=== PATIENT | female | born 1945 | race African-American/Black ===

== ENCOUNTER 2018-04-20 21:50 | Emergency (ER) | payer MEDICARE, MEDICAID ==
[~2018-04-20] VITALS: Ht 162.6 cm; Wt 67.0 kg
[~2018-04-20 21:50] MED LIST: AMLO5TAB4 PO; ASPI-1158 PO; BENA20TA10 PO; BUPR150T2 PO; CITA20TA19 PO; CLON0.1T PO; D-ME118S13 PO; GABA-529 PO; IBUP-1008 PO; MECL-109 PO; METF1000 PO; OMEP20TA2 PO; PIOG30TA10 PO; QUET400T4; TRIA10.82 NS; ZOLP5TAB2 PO
[2018-04-20 23:53] LABS: HEMATOCRIT 33.5 % (36.0-48.0); HEMOGLOBIN 11.4 g/dL (12.0-16.0); MEAN CORPUSCULAR HEMOGLOBIN 25.6 pg (28.0-32.0); MEAN CORPUSCULAR VOLUME 75.4 fL (81.0-99.0); PLATELET 156 x1000/uL (130-400); RED BLOOD CELL COUNT 4.45 mill/uL (4.2-5.4); RED CELL DISTRIBUTION WIDTH 16.6 % (11.6-14.6)
[2018-04-20 23:59] LABS: CHLORIDE 108 mEq/L (98-107)
[2018-04-21 00:08] LABS: BETA HYDROXYBUTYRATE 0.1 mMol/L (0.0-0.3)
[2018-04-21 01:06] VITALS: BP 149/36
== END 2018-04-21 01:14 | disposition home or self-care (01) ==
LOC: ER 21:50
DX: E11.65 Type 2 diabetes mellitus with hyperglycemia (principal); I10 Essential (primary) hypertension; J45.909 Unspecified asthma, uncomplicated; Z79.4 Long term (current) use of insulin; Z86.73 Personal history of transient ischemic attack (TIA), and cerebral infarction without residual deficits; Z88.5 Allergy status to narcotic agent
CPT/HCPCS: 36415; 82010; 82962; 83036; 85027; 99283

== ENCOUNTER 2018-11-28 15:33 | Emergency (ER) | payer MEDICARE, MEDICAID ==
[~2018-11-28] VITALS: Ht 160 cm; Wt 79.0 kg
[2018-11-28] MEDS ORDERED: SODIUM CHLORIDE 0.9% 1,000 ML IV ONE ×2 (16:26→19:05)
[2018-11-28 17:23] LABS: BASOPHILS % 0.6 % (0.0-2.0); EOSINOPHILS % 1.4 % (0.0-5.0); HEMATOCRIT. 32.4 % (36.0-48.0); HEMOGLOBIN. 11.1 g/dL (12.0-16.0); LYMPHOCYTES % 32.6 % (20.0-50.0); MEAN CORPUSCULAR HEMOGLOBIN 24.2 pg (28.0-32.0); MEAN CORPUSCULAR VOLUME 70.6 fL (81.0-99.0); MEAN PLATELET VOLUME 9.9 fl (7.4-10.4); MONOCYTES % 10.3 % (2.0-8.0); NEUTROPHILS % 55.1 % (40.0-76.0); PLATELET 160 x1000/uL (130-400); RED BLOOD CELL COUNT 4.59 mill/uL (4.2-5.4); RED CELL DISTRIBUTION WIDTH 18.1 % (11.6-14.6)
[2018-11-28 17:28] LABS: CHLORIDE 105 mEq/L (98-107)
[2018-11-28 17:31] LABS: BG BASE EXCESS -5.6 mmol/L (-2.0-2.0); BG CARBOXYHEMOGLOBIN 0.4 % (0.5-1.5); BG DEOXYHEMOGLOBIN 4.6 % (0.0-5.0); BG FRACTION INSPIRED OXYGEN 21; BG HCO3 ACT 18.8 mmol/L (22.0-26.0); BG METHEMOGLOBIN 0.3 % (0.0-1.5); BG OXYGEN SATURATION 95.4 % (92.0-98.5); BG OXYHEMOGLOBIN 94.7 % (94.0-97.0); BG PH 7.374 (7.350-7.450); BG PO2 86.5 mmHg (75.0-100.0); BG SAMPLE SITE RIGHT RADIAL; BG TOTAL HEMOGLOBIN 10.6 g/dL (12.0-18.0); BG VENT MODE ROOM AIR
[2018-11-28 17:36] LABS: BETA HYDROXYBUTYRATE 0.1 mMol/L (0.0-0.3)
[2018-11-28] MEDS ORDERED: INSULIN REGULAR (HUMULIN R) UD 100 UNITS/ML SYR SUBCUT ONE (17:45)
[2018-11-28] MEDS: INSULIN REGULAR (HUMULIN R) 300UNITS/3ML SUBCUT NR ×2 (18:27→20:43)
[2018-11-28 19:22] LABS: CLARITY URINE CLOUDY (CLEAR); COLOR URINE YELLOW (YELLOW); KETONES URINE NEGATIVE (NEGATIVE); LEUKOCYTE ESTERASE URINE 2+ (NEGATIVE); NITRITE URINE NEGATIVE (NEGATIVE); OCCULT BLOOD URINE NEGATIVE (NEGATIVE); PH URINE 5.5 (4.5-8.0); PROTEIN URINE NEGATIVE (NEGATIVE); SPECIFIC GRAVITY URINE 1.016 (1.005-1.030)
[2018-11-28] MEDS ORDERED: CEFTRIAXONE 1 G PREMIX 50 ML IV ONE (19:45)
[2018-11-28 21:25] VITALS: BP 158/78
== END 2018-11-28 21:27 | disposition home or self-care (01) ==
LOC: ER 15:33
DX: E11.65 Type 2 diabetes mellitus with hyperglycemia (principal); N39.0 Urinary tract infection, site not specified; D50.9 Iron deficiency anemia, unspecified; Z79.84 Long term (current) use of oral hypoglycemic drugs
CPT/HCPCS: 36415; 36600; 71045; 80053; 81003; 82010; 82375; 82805; 82962; 84484; 85025; 87077; 87086; 87186; 93005; 96361; 96365; 99284; J0696; J1815; J7030

== ENCOUNTER 2018-12-17 14:38 | Emergency (ER) | payer MEDICARE, MEDICAID ==
[~2018-12-17] VITALS: Ht 165.1 cm; Wt 68.0 kg
[2018-12-17] MEDS ORDERED: SODIUM CHLORIDE 0.9% 1,000 ML IV ONE (16:49)
[2018-12-17] MEDS ORDERED: INSULIN REGULAR (HUMULIN R) 300UNITS/3ML SUBCUT ONE (17:00)
[2018-12-17 17:02] LABS: CHLORIDE 105 mEq/L (98-107)
[2018-12-17 17:03] LABS: BASOPHILS % 0.6 % (0.0-2.0); EOSINOPHILS % 0.3 % (0.0-5.0); HEMOGLOBIN. 11.4 g/dL (12.0-16.0); LYMPHOCYTES % 30.9 % (20.0-50.0); MEAN CORPUSCULAR HEMOGLOBIN 23.6 pg (28.0-32.0); MEAN CORPUSCULAR VOLUME 70.5 fL (81.0-99.0); MEAN PLATELET VOLUME 10.4 fl (7.4-10.4); NEUTROPHILS % 59.2 % (40.0-76.0); PLATELET 152 x1000/uL (130-400); RED BLOOD CELL COUNT 4.82 mill/uL (4.2-5.4); RED CELL DISTRIBUTION WIDTH 17.5 % (11.6-14.6)
[2018-12-17 17:17] LABS: CLARITY URINE CLEAR (CLEAR); COLOR URINE YELLOW (YELLOW); KETONES URINE NEGATIVE (NEGATIVE); LEUKOCYTE ESTERASE URINE 1+ (NEGATIVE); NITRITE URINE NEGATIVE (NEGATIVE); OCCULT BLOOD URINE NEGATIVE (NEGATIVE); PROTEIN URINE NEGATIVE (NEGATIVE); SPECIFIC GRAVITY URINE 1.025 (1.005-1.030)
[2018-12-17] MEDS ORDERED: CEFTRIAXONE 1 G PREMIX 50 ML IV ONE (18:30)
[2018-12-17 18:51] VITALS: BP 128/71
== END 2018-12-17 18:54 | disposition home or self-care (01) ==
LOC: ER 14:38
DX: E11.65 Type 2 diabetes mellitus with hyperglycemia (principal); N39.0 Urinary tract infection, site not specified; I10 Essential (primary) hypertension; J45.909 Unspecified asthma, uncomplicated; Z86.73 Personal history of transient ischemic attack (TIA), and cerebral infarction without residual deficits; Z88.5 Allergy status to narcotic agent; Z79.82 Long term (current) use of aspirin; Z79.4 Long term (current) use of insulin
CPT/HCPCS: 36415; 70450; 71045; 80053; 81003; 82962; 83880; 84484; 85025; 87086; 93005; 96361; 96365; 96372; 99284; J0696; J1815; J7030

== ENCOUNTER 2019-01-28 16:12 | Emergency (ER) | payer MEDICARE, MEDICAID ==
[~2019-01-28] VITALS: Ht 160 cm; Wt 70.0 kg
[2019-01-28] MEDS ORDERED: SODIUM CHLORIDE 0.9% 1,000 ML IV ONE ×2 (16:37→18:00)
[2019-01-28 17:29] LABS: BASOPHILS % 0.4 % (0.0-2.0); EOSINOPHILS % 0.4 % (0.0-5.0); HEMATOCRIT. 36.2 % (36.0-48.0); HEMOGLOBIN. 11.9 g/dL (12.0-16.0); LYMPHOCYTES % 17.1 % (20.0-50.0); MEAN CORPUSCULAR HEMOGLOBIN 23.2 pg (28.0-32.0); MEAN CORPUSCULAR VOLUME 70.4 fL (81.0-99.0); MEAN PLATELET VOLUME 9.8 fl (7.4-10.4); MONOCYTES % 8.6 % (2.0-8.0); NEUTROPHILS % 73.5 % (40.0-76.0); PLATELET 139 x1000/uL (130-400); RED BLOOD CELL COUNT 5.14 mill/uL (4.2-5.4); RED CELL DISTRIBUTION WIDTH 19.2 % (11.6-14.6)
[2019-01-28 17:35] LABS: CHLORIDE 105 mEq/L (98-107)
[2019-01-28] MEDS ORDERED: POTASSIUM CHLORIDE 20MEQ TABLET SR PO ONE (18:15)
[2019-01-28] MEDS ORDERED: DOCUSATE SODIUM 100MG CAPSULE PO PRN (19:15)
[2019-01-28] MEDS ORDERED: GUAIFENESIN 200MG/10ML SUGAR FREE UDC PO PRN (19:15)
[2019-01-28] MEDS ORDERED: MAGNESIUM/ALUMINUM HYDROXIDE/SIMETHICONE 30ML UDC PO PRN (19:15)
[2019-01-28] MEDS ORDERED: NITROGLYCERIN 0.4MG TABLET SL SL PRN (19:15)
[2019-01-28] MEDS ORDERED: ONDANSETRON HCL 4MG/2ML INJ IV PRN (19:15)
[2019-01-28] MEDS ORDERED: CLONIDINE 0.1MG TABLET PO PRN (19:15)
[2019-01-28] MEDS ORDERED: ENOXAPARIN 40MG/0.4ML SYR SUBCUT SCH (19:15)
[2019-01-28] MEDS ORDERED: DEXTROSE 50% WATER 50ML SYRINGE IV PRN (19:15)
[2019-01-28] MEDS ORDERED: IPRATROPIUM/ALBUTEROL 0.5-3(2.5)MG/3ML NEB HHN PRN (19:15)
[2019-01-28] MEDS ORDERED: ACETAMINOPHEN 325MG TABLET PO PRN (19:15)
[2019-01-28] MEDS ORDERED: TRAMADOL 50MG TABLET PO PRN (19:45)
[2019-01-28 20:30] VITALS: BP 154/79
[2019-01-28] MEDS ORDERED: LISINOPRIL 20MG TABLET PO SCH (21:00)
[2019-01-28] MEDS ORDERED: INSULIN LISPRO 100 UNITS/ML SUBCUT SCH (21:00)
[2019-01-28] MEDS ORDERED: ZOLPIDEM TARTRATE 5MG TABLET PO PRN (21:00)
[2019-01-28] MEDS ORDERED: FAMOTIDINE 20MG TABLET PO SCH (21:00)
[2019-01-28] MEDS ORDERED: BLOOD SUGAR DIAGNOSTIC STRIP TEST SCH (21:00)
[2019-01-28] MEDS ORDERED: HALOPERIDOL LACTATE 5MG/ML VIAL IM PRN (21:30)
[2019-01-28 21:53] LABS: FOLIC ACID (FOLATE) SERUM 19.1 ng/mL (>5.38)
[2019-01-28] MEDS ORDERED: INSULIN GLARGINE UD 100 UNITS/ML SYR SUBCUT SCH (22:00)
[2019-01-29] MEDS ORDERED: ASPIRIN 325MG EC TABLET PO SCH (09:00)
== END 2019-01-28 20:30 | disposition left against medical advice (07) ==
LOC: ER 16:12 → EDBEDREQTM 18:24 → SUPCPDRO 19:06 → ENRESERV 19:41 → CANRESERV 19:41 → ER 20:30 → CANBEDREQ 21:09
DX: R55 Syncope and collapse (principal); E11.65 Type 2 diabetes mellitus with hyperglycemia; I10 Essential (primary) hypertension; F99 Mental disorder, not otherwise specified; J45.909 Unspecified asthma, uncomplicated; E87.6 Hypokalemia; D64.9 Anemia, unspecified; E83.51 Hypocalcemia; E44.1 Mild protein-calorie malnutrition; Z68.27 Body mass index [BMI] 27.0-27.9, adult; Z86.73 Personal history of transient ischemic attack (TIA), and cerebral infarction without residual deficits; Z88.5 Allergy status to narcotic agent
CPT/HCPCS: 36415; 71045; 80053; 82607; 82746; 82962; 84484; 85025; 93005; 93970; 96360; 99284; J7030

== ENCOUNTER 2019-02-19 17:16 | Emergency (ER) | payer MEDICARE, MEDICAID ==
[~2019-02-19] VITALS: Ht 165.1 cm; Wt 75.0 kg
[2019-02-19] MEDS ORDERED: SODIUM CHLORIDE 0.9% 1,000 ML IV ONE (18:15)
[2019-02-19 18:31] LABS: CHLORIDE 103 mEq/L (98-107)
[2019-02-19 18:35] LABS: BASOPHILS % 0.4 % (0.0-2.0); EOSINOPHILS % 0.5 % (0.0-5.0); HEMATOCRIT. 33.3 % (36.0-48.0); MEAN CORPUSCULAR HEMOGLOBIN 22.9 pg (28.0-32.0); MEAN CORPUSCULAR VOLUME 69.1 fL (81.0-99.0); MEAN PLATELET VOLUME 9.9 fl (7.4-10.4); MONOCYTES % 7.1 % (2.0-8.0); PLATELET 139 x1000/uL (130-400); RED BLOOD CELL COUNT 4.82 mill/uL (4.2-5.4); RED CELL DISTRIBUTION WIDTH 19.2 % (11.6-14.6)
[2019-02-19 19:10] LABS: PLATELET ESTIMATE NORMAL
[2019-02-19] MEDS ORDERED: MAGNESIUM 1 G PREMIX 100 ML IV ONE (21:15)
[2019-02-19 23:06] LABS: CLARITY URINE CLOUDY (CLEAR); COLOR URINE YELLOW (YELLOW); KETONES URINE NEGATIVE (NEGATIVE); LEUKOCYTE ESTERASE URINE 2+ (NEGATIVE); NITRITE URINE NEGATIVE (NEGATIVE); OCCULT BLOOD URINE NEGATIVE (NEGATIVE); PROTEIN URINE NEGATIVE (NEGATIVE); SPECIFIC GRAVITY URINE 1.018 (1.005-1.030)
[2019-02-20 01:00] VITALS: BP 151/73
== END 2019-02-20 01:10 | disposition home or self-care (01) ==
LOC: ER 17:48
DX: N39.0 Urinary tract infection, site not specified (principal); E11.65 Type 2 diabetes mellitus with hyperglycemia; E83.42 Hypomagnesemia; I10 Essential (primary) hypertension; Z79.4 Long term (current) use of insulin; Z79.899 Other long term (current) drug therapy
CPT/HCPCS: 36415; 71045; 80053; 81003; 82962; 83735; 84484; 85025; 93005; 96361; 96365; 96366; 99284; J3475; J7030

== ENCOUNTER 2019-03-19 14:18 | Inpatient (IN) | payer MEDICARE, MEDICAID ==
[~2019-03-19] VITALS: Ht 165.1 cm; Wt 69.9 kg
[2019-03-19 14:56] LABS: BASOPHILS % 0.5 % (0.0-2.0); EOSINOPHILS % 1.3 % (0.0-5.0); HEMATOCRIT. 32.6 % (36.0-48.0); HEMOGLOBIN. 11.1 g/dL (12.0-16.0); LYMPHOCYTES % 35.5 % (20.0-50.0); MEAN CORPUSCULAR HEMOGLOBIN 23.3 pg (28.0-32.0); MEAN CORPUSCULAR VOLUME 68.7 fL (81.0-99.0); MEAN PLATELET VOLUME 9.5 fl (7.4-10.4); MONOCYTES % 9.6 % (2.0-8.0); NEUTROPHILS % 53.1 % (40.0-76.0); PLATELET 137 x1000/uL (130-400); RED BLOOD CELL COUNT 4.75 mill/uL (4.2-5.4); RED CELL DISTRIBUTION WIDTH 19.3 % (11.6-14.6)
[2019-03-19 14:57] LABS: BG BASE EXCESS -4.5 mmol/L (-2.0-2.0); BG CARBOXYHEMOGLOBIN 0.5 % (0.5-1.5); BG DEOXYHEMOGLOBIN 4.3 % (0.0-5.0); BG FRACTION INSPIRED OXYGEN 21; BG HCO3 ACT 19.9 mmol/L (22.0-26.0); BG METHEMOGLOBIN 0.3 % (0.0-1.5); BG OXYGEN SATURATION 95.7 % (92.0-98.5); BG OXYHEMOGLOBIN 94.9 % (94.0-97.0); BG PCO2 34.2 mmHg (35.0-45.0); BG PH 7.383 (7.350-7.450); BG PO2 85.5 mmHg (75.0-100.0); BG SAMPLE SITE RIGHT BRACHIAL; BG TOTAL HEMOGLOBIN 11.2 g/dL (12.0-18.0); BG VENT MODE ROOM AIR
[2019-03-19 15:03] LABS: CHLORIDE 105 mEq/L (98-107)
[2019-03-19 15:04] LABS: INR 1.2; PROTHROMBIN TIME 12.2 sec (9.6-11.0)
[2019-03-19 15:12] LABS: BETA HYDROXYBUTYRATE 0.1 mMol/L (0.0-0.3)
[2019-03-19] MEDS ORDERED: MAGNESIUM 2 G PREMIX 50 ML IV ONE (15:15)
[2019-03-19] MEDS ORDERED: POTASSIUM CHLORIDE 20MEQ TABLET SR PO ONE (15:15)
[2019-03-19 15:28] LABS: CLARITY URINE TURBID (CLEAR); COLOR URINE YELLOW (YELLOW); KETONES URINE NEGATIVE (NEGATIVE); LEUKOCYTE ESTERASE URINE 1+ (NEGATIVE); NITRITE URINE NEGATIVE (NEGATIVE); OCCULT BLOOD URINE NEGATIVE (NEGATIVE); PROTEIN URINE NEGATIVE (NEGATIVE); SPECIFIC GRAVITY URINE 1.028 (1.005-1.030)
[2019-03-19 15:35] LABS: PLATELET ESTIMATE NORMAL
[2019-03-19] MEDS ORDERED: NA PHOS,M-B/NA PHOS,DI-BA ENEMA 118ML PR PRN (15:45)
[2019-03-19] MEDS ORDERED: DEXTROSE 50% WATER 50ML SYRINGE IV PRN (15:45)
[2019-03-19] MEDS ORDERED: DOCUSATE SODIUM 100MG CAPSULE PO PRN (15:45)
[2019-03-19] MEDS ORDERED: LORAZEPAM 0.5MG TABLET PO PRN (15:45)
[2019-03-19] MEDS ORDERED: ACETAMINOPHEN 650MG SUPP PR PRN (15:45)
[2019-03-19] MEDS ORDERED: GUAIFENESIN 200MG/10ML SUGAR FREE UDC PO PRN (15:45)
[2019-03-19] MEDS ORDERED: INSULIN REGULAR (HUMULIN R) 300UNITS/3ML SUBCUT ONE (15:45)
[2019-03-19] MEDS ORDERED: IPRATROPIUM/ALBUTEROL 0.5-3(2.5)MG/3ML NEB NEB PRN (15:45)
[2019-03-19] MEDS ORDERED: ACETAMINOPHEN 325MG TABLET PO PRN (15:45)
[2019-03-19] MEDS ORDERED: ONDANSETRON HCL 4MG/2ML INJ IV PRN (15:45)
[2019-03-19] MEDS ORDERED: MAGNESIUM/ALUMINUM HYDROXIDE/SIMETHICONE 30ML UDC PO PRN (15:45)
[2019-03-19] MEDS ORDERED: CLONIDINE 0.1MG TABLET PO PRN (15:45)
[2019-03-19] MEDS ORDERED: DIPHENHYDRAMINE 50MG/ML VIAL IV PRN (15:45)
[2019-03-19] MEDS ORDERED: CEFTRIAXONE 1 G PREMIX 50 ML IV ONE (16:00)
[2019-03-19] MEDS ORDERED: CEFTRIAXONE 1 G PREMIX 50 ML IV SCH (18:15)
[2019-03-19] MEDS ORDERED: INSULIN GLARGINE UD 100 UNITS/ML SYR SUBCUT ONE (18:15)
[2019-03-19 20:00] VITALS: BP 167/77
[2019-03-19] MEDS: BLOOD SUGAR DIAGNOSTIC STRIP TEST SCH (21:25)
[2019-03-19] MEDS ORDERED: MIRTAZAPINE 15MG TABLET PO PRN (22:00)
[2019-03-19] MEDS ORDERED: MECLIZINE 25MG TABLET PO PRN (22:00)
[2019-03-19] MEDS: SODIUM CHLORIDE 0.9% 1,000 ML IV SCH (22:36)
[2019-03-19] MEDS: INSULIN LISPRO 100 UNITS/ML SUBCUT SCH (22:38)
[2019-03-19] MEDS ORDERED: INSULIN GLARGINE UD 100 UNITS/ML SYR SUBCUT NR (23:00)
[2019-03-20] VITALS: BP 149/57
[2019-03-20 00:02] LABS: CREATINE KINASE 106 IU/L (26-192)
[2019-03-20 00:03] LABS: CREATINE KINASE MB FRACTION 1.5 ng/mL (0.5-3.6)
[2019-03-20 02:00] VITALS: BP 167/77
[2019-03-20] MEDS ORDERED: DONE5TAB26 MT (02:59)
[2019-03-20] MEDS ORDERED: OXYB5TAB11 PO (02:59)
[2019-03-20] MEDS ORDERED: ATOR40TA70 MT (02:59)
[2019-03-20] MEDS ORDERED: NIFE20CA PO (02:59)
[2019-03-20] MEDS ORDERED: MIRT15TA MT (02:59)
[2019-03-20 04:00] VITALS: BP 146/59
[2019-03-20] MEDS: BLOOD SUGAR DIAGNOSTIC STRIP TEST SCH ×2 (06:23→11:20)
[2019-03-20] MEDS: INSULIN LISPRO 100 UNITS/ML SUBCUT SCH ×2 (06:29→11:31)
[2019-03-20 07:05] LABS: BASOPHILS % 0.5 % (0.0-2.0); EOSINOPHILS % 1.7 % (0.0-5.0); HEMATOCRIT. 30.1 % (36.0-48.0); MEAN CORPUSCULAR HEMOGLOBIN 22.9 pg (28.0-32.0); MEAN CORPUSCULAR VOLUME 68.5 fL (81.0-99.0); MEAN PLATELET VOLUME 9.9 fl (7.4-10.4); MONOCYTES % 7.8 % (2.0-8.0); PLATELET 105 x1000/uL (130-400); RED BLOOD CELL COUNT 4.39 mill/uL (4.2-5.4); RED CELL DISTRIBUTION WIDTH 19.9 % (11.6-14.6)
[2019-03-20 07:22] LABS: CHLORIDE 112 mEq/L (98-107)
[2019-03-20 07:41] LABS: LDL CHOLESTEROL 35 mg/dL (5-100)
[2019-03-20 07:42] LABS: CREATINE KINASE 87 IU/L (26-192); T4 FREE 1.14 ng/dL (0.76-1.46)
[2019-03-20 07:43] LABS: HDL CHOLESTEROL 40 mg/dL (40-59)
[2019-03-20 08:25] LABS: *AMPHETAMINES SCREEN URINE NEGATIVE (NEGATIVE); *BARBITURATES SCREEN URINE NEGATIVE (NEGATIVE); *BENZODIAZEPINES SCREEN URINE NEGATIVE (NEGATIVE); *COCAINE SCREEN URINE NEGATIVE (NEGATIVE)
[2019-03-20 08:26] LABS: CANNABINOID URINE SCREEN NEGATIVE (NEGATIVE); METHADONE URINE SCREEN NEGATIVE (NEGATIVE); PHENCYCLIDINE URINE SCREEN NEGATIVE (NEGATIVE)
[2019-03-20 08:28] LABS: OPIATES URINE SCREEN NEGATIVE (NEGATIVE)
[2019-03-20 10:14] VITALS: BP 125/16
[2019-03-20] MEDS: SODIUM CHLORIDE 0.9% 1,000 ML IV SCH (10:55)
[2019-03-20] MEDS ORDERED: CEFTRIAXONE 1 G PREMIX 50 ML IV SCH (14:00)
[2019-03-20 16:14] VITALS: BP 126/75
== END 2019-03-20 17:15 | disposition home or self-care (01) | DRG 74 ==
LOC: ER 14:18 → 8WST 15:34 → SUPCPDRO 15:38 → EDBEDREQ 15:38 → ENRESERV 16:28
PROVIDERS: ADMIT Internal Medicine; ATTEND Internal Medicine
DX: G90.8 Other disorders of autonomic nervous system (principal); G93.40 Encephalopathy, unspecified; N39.0 Urinary tract infection, site not specified; E87.1 Hypo-osmolality and hyponatremia; E11.65 Type 2 diabetes mellitus with hyperglycemia; Z86.73 Personal history of transient ischemic attack (TIA), and cerebral infarction without residual deficits; F32.9 Major depressive disorder, single episode, unspecified; F41.9 Anxiety disorder, unspecified; D64.9 Anemia, unspecified; E87.6 Hypokalemia; E83.42 Hypomagnesemia; E86.0 Dehydration; I10 Essential (primary) hypertension; J44.9 Chronic obstructive pulmonary disease, unspecified; Z88.6 Allergy status to analgesic agent; Z79.82 Long term (current) use of aspirin; Z79.84 Long term (current) use of oral hypoglycemic drugs; Z79.899 Other long term (current) drug therapy
CPT/HCPCS: 36415; 36600; 71045; 80061; 80305; 81003; 82010; 82375; 82550; 82553; 82805; 82962; 83735; 83880; 84439; 84443; 84484; 87077; 87186; 93005; 93306; 93880; 93970; 96372; 96374; 96375; 97162; 99291; J0696; J1815; J3475

== ENCOUNTER 2019-06-18 09:55 | Emergency (ER) | payer MEDICARE, MEDICAID ==
[~2019-06-18] VITALS: Ht 165.1 cm; Wt 91.0 kg
[~2019-06-18 09:55] MED LIST changes: -AMLO5TAB4 PO; -ASPI-1158 PO; +ATOR40TA70 MT; -BENA20TA10 PO; -BUPR150T2 PO; -CLON0.1T PO; -D-ME118S13 PO; +DONE5TAB26 MT; -GABA-529 PO; -IBUP-1008 PO; -MECL-109 PO; +MIRT15TA MT; +NIFE20CA PO; +OXYB5TAB17 PO; -PIOG30TA10 PO; -QUET400T4; -TRIA10.82 NS; -ZOLP5TAB2 PO
[2019-06-18 10:51] LABS: BASOPHILS % 0.8 % (0.0-2.0); EOSINOPHILS % 0.5 % (0.0-5.0); HEMATOCRIT. 33.9 % (36.0-48.0); HEMOGLOBIN. 11.1 g/dL (12.0-16.0); MEAN CORPUSCULAR HEMOGLOBIN 21.4 pg (28.0-32.0); MEAN CORPUSCULAR VOLUME 65.3 fL (81.0-99.0); MEAN PLATELET VOLUME 9.5 fl (7.4-10.4); NEUTROPHILS % 53.7 % (40.0-76.0); PLATELET 123 x1000/uL (130-400); RED BLOOD CELL COUNT 5.19 mill/uL (4.2-5.4); RED CELL DISTRIBUTION WIDTH 20.1 % (11.6-14.6)
[2019-06-18 10:58] LABS: CHLORIDE 104 mEq/L (98-107)
[2019-06-18] MEDS ORDERED: SODIUM CHLORIDE 0.9% 1,000 ML IV ONE (11:00)
[2019-06-18] MEDS ORDERED: ONDANSETRON HCL 4MG/2ML INJ IV ONE (11:00)
[2019-06-18 11:02] LABS: ETHANOL BLOOD < 10 mg/dL
[2019-06-18 11:24] LABS: PLATELET ESTIMATE SLIGHTLY DECREASED
[2019-06-18 12:09] LABS: CLARITY URINE CLOUDY (CLEAR); COLOR URINE YELLOW (YELLOW); KETONES URINE TRACE (NEGATIVE); LEUKOCYTE ESTERASE URINE NEGATIVE (NEGATIVE); NITRITE URINE NEGATIVE (NEGATIVE); OCCULT BLOOD URINE NEGATIVE (NEGATIVE); PH URINE 5.5 (4.5-8.0); PROTEIN URINE 1+ (NEGATIVE); SPECIFIC GRAVITY URINE 1.021 (1.005-1.030); UROBILINOGEN URINE 0.2 E.U./dL (0.2-1.0)
[2019-06-18 12:30] LABS: *AMPHETAMINES SCREEN URINE NEGATIVE (NEGATIVE)
[2019-06-18] MEDS ORDERED: CEFTRIAXONE 1 G PREMIX 50 ML IV NR (12:30)
[2019-06-18 12:31] LABS: *BARBITURATES SCREEN URINE NEGATIVE (NEGATIVE); *BENZODIAZEPINES SCREEN URINE NEGATIVE (NEGATIVE); *COCAINE SCREEN URINE NEGATIVE (NEGATIVE); METHADONE URINE SCREEN NEGATIVE (NEGATIVE); OPIATES URINE SCREEN NEGATIVE (NEGATIVE); PHENCYCLIDINE URINE SCREEN NEGATIVE (NEGATIVE)
[2019-06-18 12:32] LABS: CANNABINOID URINE SCREEN NEGATIVE (NEGATIVE)
[2019-06-18 13:55] VITALS: BP 150/82
== END 2019-06-18 14:54 | disposition home or self-care (01) ==
LOC: ER 10:00
DX: E11.65 Type 2 diabetes mellitus with hyperglycemia (principal); N39.0 Urinary tract infection, site not specified; R53.83 Other fatigue; I10 Essential (primary) hypertension; F03.90 Unspecified dementia, unspecified severity, without behavioral disturbance, psychotic disturbance, mood disturbance, and anxiety; J45.909 Unspecified asthma, uncomplicated; Z86.73 Personal history of transient ischemic attack (TIA), and cerebral infarction without residual deficits; Z79.899 Other long term (current) drug therapy; Z88.5 Allergy status to narcotic agent
CPT/HCPCS: 36415; 70450; 71045; 80053; 80305; 80307; 80320; 80329; 81003; 82140; 82962; 83880; 84443; 84484; 85025; 93005; 96361; 96374; 96375; 99284; J0696; J2405; J7030; G0480

== ENCOUNTER 2019-07-22 17:21 | Inpatient (IN) | payer MEDICARE, MEDICAID ==
[~2019-07-22] VITALS: Ht 165.1 cm; Wt 59.9 kg
[2019-07-22 18:27] LABS: BASOPHILS % 0.8 % (0.0-2.0); EOSINOPHILS % 0.9 % (0.0-5.0); HEMATOCRIT. 33.5 % (36.0-48.0); HEMOGLOBIN. 10.9 g/dL (12.0-16.0); LYMPHOCYTES % 49.7 % (20.0-50.0); MEAN CORPUSCULAR HEMOGLOBIN 21.5 pg (28.0-32.0); MEAN CORPUSCULAR VOLUME 66.3 fL (81.0-99.0); MEAN PLATELET VOLUME 10.7 fl (7.4-10.4); MONOCYTES % 8.3 % (2.0-8.0); NEUTROPHILS % 40.3 % (40.0-76.0); PLATELET 147 x1000/uL (130-400); RED BLOOD CELL COUNT 5.05 mill/uL (4.2-5.4); RED CELL DISTRIBUTION WIDTH 21.6 % (11.6-14.6)
[2019-07-22 18:28] LABS: CHLORIDE 98 mEq/L (98-107)
[2019-07-22 18:35] LABS: BETA HYDROXYBUTYRATE 0.2 mMol/L (0.0-0.3)
[2019-07-22 18:54] LABS: PLATELET ESTIMATE NORMAL
[2019-07-22 19:19] LABS: CLARITY URINE TURBID (CLEAR); COLOR URINE YELLOW (YELLOW); KETONES URINE NEGATIVE (NEGATIVE); LEUKOCYTE ESTERASE URINE 2+ (NEGATIVE); NITRITE URINE POSITIVE (NEGATIVE); OCCULT BLOOD URINE 2+ (NEGATIVE); PROTEIN URINE NEGATIVE (NEGATIVE); SPECIFIC GRAVITY URINE 1.033 (1.005-1.030); UROBILINOGEN URINE 0.2 E.U./dL (0.2-1.0)
[2019-07-22] MEDS ORDERED: INSULIN REGULAR (DRIP) 100 UNITS in SODIUM CHLORIDE 0.9% 99 ML IV ONE ×2 (19:30→20:15)
[2019-07-22 19:56] LABS: *AMPHETAMINES SCREEN URINE NEGATIVE (NEGATIVE); *BENZODIAZEPINES SCREEN URINE NEGATIVE (NEGATIVE); *COCAINE SCREEN URINE NEGATIVE (NEGATIVE); METHADONE URINE SCREEN NEGATIVE (NEGATIVE); PHENCYCLIDINE URINE SCREEN NEGATIVE (NEGATIVE)
[2019-07-22 19:57] LABS: CANNABINOID URINE SCREEN NEGATIVE (NEGATIVE)
[2019-07-22 20:55] LABS: *BARBITURATES SCREEN URINE NEGATIVE (NEGATIVE)
[2019-07-23] VITALS (33 sets, daily range): BP systolic 66–215; BP diastolic 36–153
[2019-07-23] MEDS ORDERED: LOSARTAN POTASSIUM 100 MG TABLET PO SCH (09:00)
[2019-07-23] MEDS ORDERED: DEXTROSE 50% WATER 50ML SYRINGE IV PRN (09:30)
[2019-07-23] MEDS ORDERED: INSULIN GLARGINE UD 100 UNITS/ML SYR SUBCUT SCH ×3 (10:00→22:00)
[2019-07-23] MEDS ORDERED: CEFTRIAXONE 1 G PREMIX 50 ML IV SCH (10:00)
[2019-07-23] MEDS ORDERED: IPRATROPIUM/ALBUTEROL 0.5-3(2.5)MG/3ML NEB HHN PRN (11:15)
[2019-07-23] MEDS: BLOOD SUGAR DIAGNOSTIC STRIP TEST SCH ×2 (12:00→17:36)
[2019-07-23] MEDS: INSULIN LISPRO 100 UNITS/ML SUBCUT SCH ×4 (12:28→17:36)
[2019-07-23] MEDS ORDERED: MEROPENEM 1,000 MG in SODIUM CHLORIDE 0.9% 100 ML IV SCH (12:30)
[2019-07-23 13:06] LABS: BASOPHILS % 0.7 % (0.0-2.0); EOSINOPHILS % 0.5 % (0.0-5.0); HEMATOCRIT. 32.9 % (36.0-48.0); HEMOGLOBIN. 10.9 g/dL (12.0-16.0); LYMPHOCYTES % 44.5 % (20.0-50.0); MEAN CORPUSCULAR HEMOGLOBIN 21.7 pg (28.0-32.0); MEAN CORPUSCULAR VOLUME 65.6 fL (81.0-99.0); MEAN PLATELET VOLUME 9.8 fl (7.4-10.4); MONOCYTES % 6.7 % (2.0-8.0); NEUTROPHILS % 47.6 % (40.0-76.0); PLATELET 139 x1000/uL (130-400); RED BLOOD CELL COUNT 5.02 mill/uL (4.2-5.4); RED CELL DISTRIBUTION WIDTH 21.1 % (11.6-14.6)
[2019-07-23 13:14] LABS: CHLORIDE 101 mEq/L (98-107)
[2019-07-23] MEDS ORDERED: MIRT15TA6 PO (14:40)
[2019-07-23] MEDS ORDERED: MIRT15TA6 MT (14:40)
[2019-07-23] MEDS ORDERED: NIFEDIPINE XL 60MG TAB PO SCH (15:00)
[2019-07-23] MEDS ORDERED: INSULIN GLARGINE UD 100 UNITS/ML SYR SUBCUT NR (16:00)
[2019-07-23] MEDS ORDERED: CLONIDINE 0.2MG TABLET PO SCH (17:16)
[2019-07-24 21:31] LABS: OPIATES URINE SCREEN NEGATIVE (NEGATIVE)
== END 2019-07-23 18:30 | disposition left against medical advice (07) | DRG 638 ==
LOC: ER 17:21 → EDBEDREQ 23:38 → EDBEDREQSVC 07-23 01:43 → EDBEDREQTM 07-23 01:43 → ENRESERV 07-23 05:38 → MICUSO 07-23 06:54
PROVIDERS: ADMIT Internal Medicine; ATTEND Internal Medicine
DX: E11.65 Type 2 diabetes mellitus with hyperglycemia (principal); E44.1 Mild protein-calorie malnutrition; E87.1 Hypo-osmolality and hyponatremia; N39.0 Urinary tract infection, site not specified; D64.9 Anemia, unspecified; F41.9 Anxiety disorder, unspecified; I10 Essential (primary) hypertension; J44.9 Chronic obstructive pulmonary disease, unspecified; Z53.29 Procedure and treatment not carried out because of patient's decision for other reasons; Z86.73 Personal history of transient ischemic attack (TIA), and cerebral infarction without residual deficits; Z87.440 Personal history of urinary (tract) infections; Z88.5 Allergy status to narcotic agent; Z79.899 Other long term (current) drug therapy
CPT/HCPCS: 36415; 71045; 80048; 80053; 80305; 81003; 82010; 82962; 83036; 83880; 84484; 85025; 87077; 87186; 93005; 96365; 99285; J0696; J1815; J2185; J7050

== ENCOUNTER 2020-09-09 14:58 | Inpatient (IN) | payer BC, MEDICARE, MEDICAID ==
[~2020-09-09] VITALS: Ht 165.1 cm; Wt 104.3 kg
[~2020-09-09 14:58] MED LIST changes: +MIRT-118 MT; -MIRT15TA MT; +MIRT15TA6 MT; +MIRT15TA6 PO
[2020-09-09] MEDS ORDERED: ONDANSETRON HCL 4MG/2ML INJ IV STA (15:17)
[2020-09-09 16:15] LABS: BG BASE EXCESS -8.7 mmol/L (-2.0-2.0); BG CARBOXYHEMOGLOBIN 0.5 % (0.5-1.5); BG DEOXYHEMOGLOBIN 8.4 % (0.0-5.0); BG FRACTION INSPIRED OXYGEN 44; BG HCO3 ACT 15.4 mmol/L (22.0-26.0); BG METHEMOGLOBIN 0.3 % (0.0-1.5); BG OXYGEN SATURATION 91.5 % (92.0-98.5); BG OXYHEMOGLOBIN 90.8 % (94.0-97.0); BG PCO2 28.3 mmHg (35.0-45.0); BG PH 7.353 (7.350-7.450); BG PO2 64.4 mmHg (75.0-100.0); BG SAMPLE SITE RIGHT RADIAL; BG TOTAL HEMOGLOBIN 13.2 g/dL (12.0-18.0); BG VENT MODE NASAL CANNULA
[2020-09-09 16:19] LABS: BASOPHILS % 0.4 % (0.0-2.0); HEMATOCRIT. 38.1 % (36.0-48.0); HEMOGLOBIN. 13.1 g/dL (12.0-16.0); LYMPHOCYTES % 16.3 % (20.0-50.0); MEAN CORPUSCULAR HEMOGLOBIN 28.9 pg (28.0-32.0); MEAN CORPUSCULAR VOLUME 83.8 fL (81.0-99.0); MEAN PLATELET VOLUME 10.5 fl (7.4-10.4); MONOCYTES % 11.8 % (2.0-8.0); NEUTROPHILS % 71.5 % (40.0-76.0); PLATELET 126 x1000/uL (130-400); RED BLOOD CELL COUNT 4.54 mill/uL (4.2-5.4); RED CELL DISTRIBUTION WIDTH 15.6 % (11.6-14.6)
[2020-09-09 16:27] LABS: CHLORIDE 101 mEq/L (98-107)
[2020-09-09 16:29] LABS: INR 1.1; PROTHROMBIN TIME 11.4 sec (9.6-11.0)
[2020-09-09] MEDS ORDERED: DEXAMETHASONE 4MG/ML 1ML VIAL IV ONE (17:00)
[2020-09-10] VITALS (7 sets, daily range): BP systolic 123–151; BP diastolic 63–77
[2020-09-10] MEDS ORDERED: DEXTROSE 50% WATER 50ML SYRINGE IV PRN
[2020-09-10] MEDS ORDERED: ACETAMINOPHEN 325MG TABLET PO PRN
[2020-09-10] MEDS: AZITHROMYCIN 500 MG in DEXT 5% WATER 250 ML IV SCH (02:13)
[2020-09-10] MEDS: CEFTRIAXONE 1,000 MG in DEXTROSE 5% WATER 50 ML IV SCH (02:13)
[2020-09-10] MEDS: ZOLPIDEM TARTRATE 5MG TABLET PO PRN ×2 (02:14→21:46)
[2020-09-10] MEDS ORDERED: METF-874 MT (03:30)
[2020-09-10] MEDS ORDERED: AMLO10TA80 PO (03:30)
[2020-09-10] MEDS ORDERED: INSULIN LISPRO 100 UNITS/ML SUBCUT SCH ×2 (06:00→08:10)
[2020-09-10] MEDS: BLOOD SUGAR DIAGNOSTIC STRIP TEST SCH ×4 (07:42→21:46)
[2020-09-10] MEDS: FAMOTIDINE 20MG TABLET PO SCH (08:03)
[2020-09-10] MEDS: AMLODIPINE 10MG TABLET PO SCH (08:03)
[2020-09-10] MEDS: DEXAMETHASONE 10 MG/ML VIAL IV SCH (08:03)
[2020-09-10 08:54] LABS: CLARITY URINE CLEAR (CLEAR); COLOR URINE YELLOW (YELLOW); KETONES URINE NEGATIVE (NEGATIVE); LEUKOCYTE ESTERASE URINE NEGATIVE (NEGATIVE); NITRITE URINE NEGATIVE (NEGATIVE); OCCULT BLOOD URINE NEGATIVE (NEGATIVE); PROTEIN URINE NEGATIVE (NEGATIVE); SPECIFIC GRAVITY URINE 1.028 (1.005-1.030)
[2020-09-10] MEDS ORDERED: ENOXAPARIN 30MG/0.3ML SYR SUBCUT SCH (09:00)
[2020-09-10] MEDS ORDERED: ENOXAPARIN 40MG/0.4ML SYR SUBCUT SCH (09:00)
[2020-09-10] MEDS: INSULIN GLARGINE UD 100 UNITS/ML SYR SUBCUT SCH ×2 (09:35→21:44)
[2020-09-10] MEDS ORDERED: INSULIN GLARGINE UD 100 UNITS/ML SYR SUBCUT SCH (10:00)
[2020-09-10] MEDS ORDERED: GUAIFENESIN-DM 200MG-20MG/10ML UDC PO PRN (11:30)
[2020-09-10] MEDS ORDERED: THROAT LOZENGES-BENZOCAINE/MENTH/CETYLPYRD CL LOZENGES MM PRN (12:30)
[2020-09-10] MEDS: INSULIN LISPRO 100 UNITS/ML SUBCUT SCH ×3 (12:55→21:45)
[2020-09-10] MEDS ORDERED: ALBUTEROL 6.7GM HFA INHALER ORI PRN (17:30)
[2020-09-11] VITALS (7 sets, daily range): BP systolic 112–168; BP diastolic 63–88
[2020-09-11] MEDS: CEFTRIAXONE 1,000 MG in DEXTROSE 5% WATER 50 ML IV SCH (00:54)
[2020-09-11] MEDS: AZITHROMYCIN 500 MG in DEXT 5% WATER 250 ML IV SCH (01:31)
[2020-09-11] MEDS: CLONIDINE 0.1MG TABLET PO PRN (05:27)
[2020-09-11 07:11] LABS: BASOPHILS % 0.1 % (0.0-2.0); HEMOGLOBIN. 13.4 g/dL (12.0-16.0); LYMPHOCYTES % 8.5 % (20.0-50.0); MEAN CORPUSCULAR HEMOGLOBIN 28.5 pg (28.0-32.0); MEAN PLATELET VOLUME 10.2 fl (7.4-10.4); NEUTROPHILS % 85.4 % (40.0-76.0); PLATELET 141 x1000/uL (130-400); RED CELL DISTRIBUTION WIDTH 15.2 % (11.6-14.6)
[2020-09-11 07:14] LABS: CHLORIDE 105 mEq/L (98-107)
[2020-09-11] MEDS: BLOOD SUGAR DIAGNOSTIC STRIP TEST SCH ×4 (07:16→21:17)
[2020-09-11] MEDS: INSULIN LISPRO 100 UNITS/ML SUBCUT SCH ×4 (07:54→21:17)
[2020-09-11] MEDS: FAMOTIDINE 20MG TABLET PO SCH (08:06)
[2020-09-11] MEDS: ENOXAPARIN 40MG/0.4ML SYR SUBCUT SCH (08:06)
[2020-09-11] MEDS: DEXAMETHASONE 10 MG/ML VIAL IV SCH (08:06)
[2020-09-11] MEDS: AMLODIPINE 10MG TABLET PO SCH (08:07)
[2020-09-11] MEDS: INSULIN GLARGINE UD 100 UNITS/ML SYR SUBCUT SCH ×2 (09:45→21:16)
[2020-09-11] MEDS ORDERED: LORAZEPAM 2MG/ML CPJ IV PRN (16:00)
[2020-09-11] MEDS: ZOLPIDEM TARTRATE 5MG TABLET PO PRN (21:17)
[2020-09-11] MEDS: ONDANSETRON HCL 4MG/2ML INJ IV PRN (21:32)
[2020-09-12] MEDS: CEFTRIAXONE 1,000 MG in DEXTROSE 5% WATER 50 ML IV SCH (00:06)
[2020-09-12] MEDS: AZITHROMYCIN 500 MG in DEXT 5% WATER 250 ML IV SCH (01:24)
[2020-09-12 04:00] VITALS: BP 112/63
[2020-09-12] MEDS ORDERED: IVERMECTIN 3 MG TABLET PO SCH (06:30)
[2020-09-12 07:24] LABS: BG BASE EXCESS -0.4 mmol/L (-2.0-2.0); BG CARBOXYHEMOGLOBIN 0.3 % (0.5-1.5); BG DEOXYHEMOGLOBIN 10.9 % (0.0-5.0); BG HCO3 ACT 23.9 mmol/L (22.0-26.0); BG METHEMOGLOBIN 0.3 % (0.0-1.5); BG OXYHEMOGLOBIN 88.5 % (94.0-97.0); BG PCO2 37.8 mmHg (35.0-45.0); BG PH 7.418 (7.350-7.450); BG SAMPLE SITE RIGHT RADIAL; BG TOTAL HEMOGLOBIN 12.1 g/dL (12.0-18.0); BG VENT MODE MASK - BIPAP
[2020-09-12] MEDS: INSULIN LISPRO 100 UNITS/ML SUBCUT SCH ×4 (07:25→21:54)
[2020-09-12] MEDS: BLOOD SUGAR DIAGNOSTIC STRIP TEST SCH ×4 (07:25→21:54)
[2020-09-12 08:00] VITALS: BP 177/69
[2020-09-12] MEDS: DEXAMETHASONE 10 MG/ML VIAL IV SCH (08:17)
[2020-09-12] MEDS: AMLODIPINE 10MG TABLET PO SCH (08:18)
[2020-09-12] MEDS: CLONIDINE 0.1MG TABLET PO PRN (08:18)
[2020-09-12] MEDS: FAMOTIDINE 20MG TABLET PO SCH (08:18)
[2020-09-12] MEDS: ENOXAPARIN 40MG/0.4ML SYR SUBCUT SCH (08:29)
[2020-09-12 09:20] VITALS: BP 137/67
[2020-09-12] MEDS: INSULIN GLARGINE UD 100 UNITS/ML SYR SUBCUT SCH ×2 (09:43→21:53)
[2020-09-12] MEDS: ONDANSETRON HCL 4MG/2ML INJ IV PRN ×2 (10:45→21:39)
[2020-09-12 12:00] VITALS: BP 147/71
[2020-09-12 16:00] VITALS: BP 143/69
[2020-09-12 20:00] VITALS: BP 139/68
[2020-09-13] VITALS (79 sets, daily range): BP systolic 77–183; BP diastolic 17–132
[2020-09-13] MEDS: ZOLPIDEM TARTRATE 5MG TABLET PO PRN (00:30)
[2020-09-13] MEDS: CEFTRIAXONE 1,000 MG in DEXTROSE 5% WATER 50 ML IV SCH (01:39)
[2020-09-13] MEDS: AZITHROMYCIN 500 MG in DEXT 5% WATER 250 ML IV SCH (03:13)
[2020-09-13] MEDS ORDERED: FENTANYL CITRATE/PF 1,000 MCG in SODIUM CHLORIDE 0.9% 80 ML IV PRN (08:00)
[2020-09-13] MEDS ORDERED: PROPOFOL 10MG/ML 100ML 100 ML IV PRN ×2 (08:00→08:15)
[2020-09-13] MEDS: FAMOTIDINE 20MG TABLET PO SCH (09:00)
[2020-09-13] MEDS: AMLODIPINE 10MG TABLET PO SCH (09:00)
[2020-09-13 09:08] LABS: BG BASE EXCESS -7.1 mmol/L (-2.0-2.0); BG CARBOXYHEMOGLOBIN 0.9 % (0.5-1.5); BG DEOXYHEMOGLOBIN 21.8 % (0.0-5.0); BG HCO3 ACT 18.5 mmol/L (22.0-26.0); BG METHEMOGLOBIN 0.1 % (0.0-1.5); BG OXYHEMOGLOBIN 77.2 % (94.0-97.0); BG PCO2 37.7 mmHg (35.0-45.0); BG PH 7.309 (7.350-7.450); BG PO2 48.3 mmHg (75.0-100.0); BG TOTAL HEMOGLOBIN 13.2 g/dL (12.0-18.0)
[2020-09-13] MEDS: DEXAMETHASONE 10 MG/ML VIAL IV SCH (09:23)
[2020-09-13] MEDS: ENOXAPARIN 40MG/0.4ML SYR SUBCUT SCH (09:24)
[2020-09-13] MEDS: FENTANYL CITRATE 2,500 MCG in SODIUM CHLORIDE 0.9% 200 ML IV PRN (09:33)
[2020-09-13] MEDS: PHENYLEPHRINE 100 MG in DEXT 5% WATER 240 ML IV PRN (10:02)
[2020-09-13] MEDS: INSULIN LISPRO 100 UNITS/ML SUBCUT SCH ×3 (12:00→21:44)
[2020-09-13] MEDS: BLOOD SUGAR DIAGNOSTIC STRIP TEST SCH ×3 (12:17→21:45)
[2020-09-13] MEDS: INSULIN GLARGINE UD 100 UNITS/ML SYR SUBCUT SCH ×2 (12:18→21:52)
[2020-09-13] MEDS: MIDODRINE HCL 5MG TABLET PO SCH ×2 (13:00→17:00)
[2020-09-13 13:16] LABS: HEMATOCRIT. 35.4 % (36.0-48.0); MEAN CORPUSCULAR HEMOGLOBIN 27.7 pg (28.0-32.0); MEAN PLATELET VOLUME 9.8 fl (7.4-10.4); PLATELET 174 x1000/uL (130-400); RED BLOOD CELL COUNT 4.31 mill/uL (4.2-5.4)
[2020-09-13] MEDS: MIDAZOLAM HCL 100 MG in SODIUM CHLORIDE 0.9% 80 ML IV PRN (13:55)
[2020-09-13] MEDS ORDERED: LIDOCAINE HCL 1% 20ML VIAL (Pyxis) INJ ONE (14:19)
[2020-09-13] MEDS: SODIUM CHLORIDE 0.45% 1,000 ML IV SCH (16:15)
[2020-09-13] MEDS: DOPAMINE 400MG/250ML PREMIX 250 ML IV PRN (16:25)
[2020-09-13] MEDS ORDERED: ATROPINE SULFATE 1MG/10ML SYR ONE (16:34)
[2020-09-13 19:33] LABS: PLATELET ESTIMATE NORMAL
[2020-09-14] VITALS (99 sets, daily range): BP systolic 93–188; BP diastolic 53–98
[2020-09-14] MEDS: CEFTRIAXONE 1,000 MG in DEXTROSE 5% WATER 50 ML IV SCH (00:43)
[2020-09-14] MEDS: AZITHROMYCIN 500 MG in DEXT 5% WATER 250 ML IV SCH (01:42)
[2020-09-14 05:01] LABS: BASOPHILS % 0.1 % (0.0-2.0); HEMOGLOBIN. 11.2 g/dL (12.0-16.0); LYMPHOCYTES % 7.7 % (20.0-50.0); MEAN CORPUSCULAR HEMOGLOBIN 27.3 pg (28.0-32.0); MEAN CORPUSCULAR VOLUME 80.7 fL (81.0-99.0); MEAN PLATELET VOLUME 9.9 fl (7.4-10.4); NEUTROPHILS % 86.2 % (40.0-76.0); PLATELET 123 x1000/uL (130-400); RED BLOOD CELL COUNT 4.09 mill/uL (4.2-5.4); RED CELL DISTRIBUTION WIDTH 15.1 % (11.6-14.6)
[2020-09-14 05:03] LABS: CHLORIDE 105 mEq/L (98-107)
[2020-09-14] MEDS: INSULIN LISPRO 100 UNITS/ML SUBCUT SCH ×4 (06:09→21:38)
[2020-09-14] MEDS: SODIUM CHLORIDE 0.45% 1,000 ML IV SCH ×2 (06:09→18:32)
[2020-09-14] MEDS: BLOOD SUGAR DIAGNOSTIC STRIP TEST SCH ×4 (06:09→21:39)
[2020-09-14] MEDS ORDERED: IVERMECTIN 3 MG TABLET PO SCH (06:30)
[2020-09-14 07:20] LABS: BG BASE EXCESS -3.8 mmol/L (-2.0-2.0); BG CARBOXYHEMOGLOBIN 0.3 % (0.5-1.5); BG DEOXYHEMOGLOBIN 5.9 % (0.0-5.0); BG HCO3 ACT 20.6 mmol/L (22.0-26.0); BG OXYGEN SATURATION 94.1 % (92.0-98.5); BG OXYHEMOGLOBIN 93.8 % (94.0-97.0); BG PCO2 35.4 mmHg (35.0-45.0); BG PH 7.383 (7.350-7.450); BG PO2 75.3 mmHg (75.0-100.0); BG SAMPLE SITE RIGHT RADIAL; BG VENT MODE VENT - AC
[2020-09-14] MEDS: FAMOTIDINE 20MG TABLET PO SCH (09:12)
[2020-09-14] MEDS: ENOXAPARIN 40MG/0.4ML SYR SUBCUT SCH (09:12)
[2020-09-14] MEDS: MIDODRINE HCL 5MG TABLET PO SCH ×3 (09:12→16:54)
[2020-09-14] MEDS: AMLODIPINE 10MG TABLET PO SCH (09:12)
[2020-09-14] MEDS: DEXAMETHASONE 10 MG/ML VIAL IV SCH (09:13)
[2020-09-14] MEDS: INSULIN GLARGINE UD 100 UNITS/ML SYR SUBCUT SCH ×2 (09:16→21:38)
[2020-09-14] MEDS ORDERED: ERGOCALCIFEROL 50000UNITS CAPSULE PO SCH (12:00)
[2020-09-14] MEDS: FENTANYL CITRATE 2,500 MCG in SODIUM CHLORIDE 0.9% 200 ML IV PRN (17:43)
[2020-09-14] MEDS: ASCORBIC ACID 500 MG TABLET PO SCH (21:38)
[2020-09-14 22:22] LABS: BG BASE EXCESS -4.7 mmol/L (-2.0-2.0); BG CARBOXYHEMOGLOBIN 0.6 % (0.5-1.5); BG FRACTION INSPIRED OXYGEN 100; BG HCO3 ACT 21.2 mmol/L (22.0-26.0); BG OXYHEMOGLOBIN 97.4 % (94.0-97.0); BG PCO2 42.2 mmHg (35.0-45.0); BG PH 7.319 (7.350-7.450); BG PO2 141.2 mmHg (75.0-100.0); BG SAMPLE SITE RIGHT RADIAL; BG TOTAL HEMOGLOBIN 12.3 g/dL (12.0-18.0); BG VENT MODE VENT - AC
[2020-09-15] VITALS (94 sets, daily range): BP systolic 101–150; BP diastolic 57–90
[2020-09-15] MEDS: INSULIN LISPRO 100 UNITS/ML SUBCUT SCH ×4 (05:42→21:48)
[2020-09-15] MEDS: BLOOD SUGAR DIAGNOSTIC STRIP TEST SCH ×4 (05:42→21:43)
[2020-09-15 05:52] LABS: HEMATOCRIT. 35.5 % (36.0-48.0); HEMOGLOBIN. 11.8 g/dL (12.0-16.0); MEAN CORPUSCULAR VOLUME 81.3 fL (81.0-99.0); MEAN PLATELET VOLUME 10.8 fl (7.4-10.4); PLATELET 138 x1000/uL (130-400); RED BLOOD CELL COUNT 4.36 mill/uL (4.2-5.4)
[2020-09-15 05:56] LABS: CHLORIDE 102 mEq/L (98-107)
[2020-09-15] MEDS: SODIUM CHLORIDE 0.45% 1,000 ML IV SCH ×2 (07:38→22:00)
[2020-09-15] MEDS: ENOXAPARIN 40MG/0.4ML SYR SUBCUT SCH (08:39)
[2020-09-15] MEDS: ASCORBIC ACID 500 MG TABLET PO SCH ×2 (08:39→21:49)
[2020-09-15] MEDS: DEXAMETHASONE 10 MG/ML VIAL IV SCH (08:39)
[2020-09-15] MEDS: MIDODRINE HCL 5MG TABLET PO SCH ×3 (08:39→17:00)
[2020-09-15] MEDS: AMLODIPINE 10MG TABLET PO SCH (08:39)
[2020-09-15] MEDS: FAMOTIDINE 20MG TABLET PO SCH (08:39)
[2020-09-15] MEDS: FENTANYL CITRATE 2,500 MCG in SODIUM CHLORIDE 0.9% 200 ML IV PRN (10:08)
[2020-09-15] MEDS: INSULIN GLARGINE UD 100 UNITS/ML SYR SUBCUT SCH ×2 (10:24→21:49)
[2020-09-15] MEDS ORDERED: LACTULOSE 20G/30ML UDC PO NR (10:30)
[2020-09-15] MEDS ORDERED: BISACODYL 10MG SUPP PR PRN (10:30)
[2020-09-15] MEDS: DOCUSATE SODIUM 100MG CAPSULE PO SCH (11:12)
[2020-09-15] MEDS: DOPAMINE 400MG/250ML PREMIX 250 ML IV PRN (11:16)
[2020-09-15 11:44] LABS: NUCLEATED RED BLOOD CELLS 1 /100 WBC; PLATELET ESTIMATE NORMAL
[2020-09-15 11:47] LABS: BG BASE EXCESS -4.6 mmol/L (-2.0-2.0); BG CARBOXYHEMOGLOBIN 0.4 % (0.5-1.5); BG DEOXYHEMOGLOBIN 0.8 % (0.0-5.0); BG METHEMOGLOBIN 0.2 % (0.0-1.5); BG OXYGEN SATURATION 99.2 % (92.0-98.5); BG OXYHEMOGLOBIN 98.6 % (94.0-97.0); BG PCO2 46.3 mmHg (35.0-45.0); BG PH 7.294 (7.350-7.450); BG PO2 313.7 mmHg (75.0-100.0); BG SAMPLE SITE RIGHT RADIAL; BG TOTAL HEMOGLOBIN 12.8 g/dL (12.0-18.0); BG VENT MODE VENT- PRVC
[2020-09-15 14:08] LABS: BG BASE EXCESS -5.4 mmol/L (-2.0-2.0); BG CARBOXYHEMOGLOBIN 0.3 % (0.5-1.5); BG DEOXYHEMOGLOBIN 1.1 % (0.0-5.0); BG HCO3 ACT 20.9 mmol/L (22.0-26.0); BG METHEMOGLOBIN 0.1 % (0.0-1.5); BG OXYGEN SATURATION 98.9 % (92.0-98.5); BG OXYHEMOGLOBIN 98.5 % (94.0-97.0); BG PH 7.295 (7.350-7.450); BG PO2 262.4 mmHg (75.0-100.0); BG SAMPLE SITE RIGHT RADIAL; BG TOTAL HEMOGLOBIN 12.7 g/dL (12.0-18.0); BG VENT MODE VENT- PRVC
[2020-09-16] VITALS (95 sets, daily range): BP systolic 91–204; BP diastolic 50–126
[2020-09-16] MEDS ORDERED: SODIUM BICARBONATE 8.4% 1 MEQ/ML 50ML SYR IV NR (01:30)
[2020-09-16] MEDS: FENTANYL CITRATE 2,500 MCG in SODIUM CHLORIDE 0.9% 200 ML IV PRN ×3 (03:05→20:51)
[2020-09-16 04:56] LABS: HEMATOCRIT. 34.8 % (36.0-48.0); HEMOGLOBIN. 11.3 g/dL (12.0-16.0); MEAN CORPUSCULAR HEMOGLOBIN 26.7 pg (28.0-32.0); MEAN CORPUSCULAR VOLUME 82.1 fL (81.0-99.0); MEAN PLATELET VOLUME 10.8 fl (7.4-10.4); PLATELET 113 x1000/uL (130-400); RED BLOOD CELL COUNT 4.24 mill/uL (4.2-5.4)
[2020-09-16] MEDS: BLOOD SUGAR DIAGNOSTIC STRIP TEST SCH ×4 (05:12→21:15)
[2020-09-16] MEDS: INSULIN LISPRO 100 UNITS/ML SUBCUT SCH ×4 (05:13→21:28)
[2020-09-16 07:45] LABS: BG BASE EXCESS -6.4 mmol/L (-2.0-2.0); BG DEOXYHEMOGLOBIN 0.9 % (0.0-5.0); BG FRACTION INSPIRED OXYGEN 100; BG HCO3 ACT 20.9 mmol/L (22.0-26.0); BG METHEMOGLOBIN 0.3 % (0.0-1.5); BG OXYGEN SATURATION 99.1 % (92.0-98.5); BG OXYHEMOGLOBIN 98.8 % (94.0-97.0); BG PCO2 48.6 mmHg (35.0-45.0); BG PH 7.251 (7.350-7.450); BG PO2 285.7 mmHg (75.0-100.0); BG SAMPLE SITE RIGHT RADIAL; BG TOTAL HEMOGLOBIN 12.8 g/dL (12.0-18.0); BG TOTAL RESPIRATORY RATE 30 b/min; BG VENT MODE VENT- PRVC
[2020-09-16] MEDS ORDERED: SODIUM POLYSTYRENE SULFONATE 15 G/60 ML BOT PO NR (09:00)
[2020-09-16] MEDS: FAMOTIDINE 20MG TABLET PO SCH (09:13)
[2020-09-16] MEDS: ENOXAPARIN 40MG/0.4ML SYR SUBCUT SCH (09:13)
[2020-09-16] MEDS: DEXAMETHASONE 10 MG/ML VIAL IV SCH (09:13)
[2020-09-16] MEDS: AMLODIPINE 10MG TABLET PO SCH (09:14)
[2020-09-16] MEDS: ASCORBIC ACID 500 MG TABLET PO SCH ×2 (09:14→21:27)
[2020-09-16] MEDS: DOCUSATE SODIUM 100MG CAPSULE PO SCH (09:14)
[2020-09-16] MEDS: MIDODRINE HCL 5MG TABLET PO SCH (09:17)
[2020-09-16] MEDS: INSULIN GLARGINE UD 100 UNITS/ML SYR SUBCUT SCH ×2 (09:46→21:28)
[2020-09-16 10:06] LABS: NUCLEATED RED BLOOD CELLS 3 /100 WBC; PLATELET ESTIMATE SLIGHTLY DECREASED
[2020-09-16] MEDS: SODIUM CHLORIDE 0.9% 1,000 ML IV SCH (10:47)
[2020-09-16] MEDS: MIDAZOLAM HCL 100 MG in SODIUM CHLORIDE 0.9% 80 ML IV PRN (20:52)
[2020-09-17] VITALS (93 sets, daily range): BP systolic 136–178; BP diastolic 54–96
[2020-09-17] MEDS: SODIUM CHLORIDE 0.9% 1,000 ML IV SCH ×2 (00:11→12:26)
[2020-09-17] MEDS: FENTANYL CITRATE 2,500 MCG in SODIUM CHLORIDE 0.9% 200 ML IV PRN ×3 (05:41→23:22)
[2020-09-17 05:53] LABS: HEMATOCRIT. 32.9 % (36.0-48.0); HEMOGLOBIN. 11.2 g/dL (12.0-16.0); MEAN CORPUSCULAR HEMOGLOBIN 27.2 pg (28.0-32.0); MEAN CORPUSCULAR VOLUME 80.2 fL (81.0-99.0); MEAN PLATELET VOLUME 10.6 fl (7.4-10.4); PLATELET 91 x1000/uL (130-400); RED BLOOD CELL COUNT 4.11 mill/uL (4.2-5.4); RED CELL DISTRIBUTION WIDTH 15.5 % (11.6-14.6)
[2020-09-17 06:02] LABS: CHLORIDE 105 mEq/L (98-107)
[2020-09-17] MEDS: BLOOD SUGAR DIAGNOSTIC STRIP TEST SCH ×4 (06:19→21:02)
[2020-09-17] MEDS: INSULIN LISPRO 100 UNITS/ML SUBCUT SCH ×4 (06:22→21:00)
[2020-09-17 08:07] LABS: BG BASE EXCESS -2.6 mmol/L (-2.0-2.0); BG CARBOXYHEMOGLOBIN 0.1 % (0.5-1.5); BG DEOXYHEMOGLOBIN 3.6 % (0.0-5.0); BG FRACTION INSPIRED OXYGEN 75; BG HCO3 ACT 20.9 mmol/L (22.0-26.0); BG METHEMOGLOBIN 0.1 % (0.0-1.5); BG OXYGEN SATURATION 96.4 % (92.0-98.5); BG OXYHEMOGLOBIN 96.2 % (94.0-97.0); BG PCO2 32.1 mmHg (35.0-45.0); BG PH 7.432 (7.350-7.450); BG PO2 91.7 mmHg (75.0-100.0); BG SAMPLE SITE RIGHT RADIAL; BG TOTAL HEMOGLOBIN 11.4 g/dL (12.0-18.0); BG VENT MODE VENT- PRVC
[2020-09-17] MEDS: ENOXAPARIN 40MG/0.4ML SYR SUBCUT SCH (09:39)
[2020-09-17] MEDS: ASCORBIC ACID 500 MG TABLET PO SCH ×2 (09:40→20:53)
[2020-09-17] MEDS: FAMOTIDINE 20MG TABLET PO SCH (09:40)
[2020-09-17] MEDS: DOCUSATE SODIUM 100MG CAPSULE PO SCH (09:40)
[2020-09-17] MEDS: DEXAMETHASONE 10 MG/ML VIAL IV SCH (09:40)
[2020-09-17] MEDS: INSULIN GLARGINE UD 100 UNITS/ML SYR SUBCUT SCH ×2 (09:42→21:00)
[2020-09-17] MEDS ORDERED: IPRATROPIUM/ALBUTEROL 0.5-3(2.5)MG/3ML NEB HHN PRN (10:15)
[2020-09-17 10:40] LABS: NUCLEATED RED BLOOD CELLS 1 /100 WBC
[2020-09-17 10:41] LABS: PLATELET ESTIMATE DECREASED
[2020-09-17] MEDS: IPRATROPIUM/ALBUTEROL 0.5-3(2.5)MG/3ML NEB HHN SCH (20:03)
[2020-09-17] MEDS: CLONIDINE 0.1MG TABLET PO PRN (20:54)
[2020-09-17] MEDS ORDERED: HYDRALAZINE 20MG/ML VIAL IV PRN (23:45)
[2020-09-17] MEDS ORDERED: CLONIDINE 0.1MG TABLET PO PRN (23:45)
[2020-09-18] VITALS (94 sets, daily range): BP systolic 92–198; BP diastolic 45–134
[2020-09-18] MEDS: AMLODIPINE 10MG TABLET PO SCH ×2 (00:45→10:47)
[2020-09-18] MEDS: SODIUM CHLORIDE 0.9% 1,000 ML IV SCH ×2 (01:31→15:49)
[2020-09-18] MEDS: MIDAZOLAM HCL 100 MG in SODIUM CHLORIDE 0.9% 80 ML IV PRN (02:54)
[2020-09-18] MEDS: BLOOD SUGAR DIAGNOSTIC STRIP TEST SCH ×4 (05:25→23:23)
[2020-09-18] MEDS: INSULIN LISPRO 100 UNITS/ML SUBCUT SCH ×4 (05:26→23:26)
[2020-09-18 05:44] LABS: HEMATOCRIT. 34.6 % (36.0-48.0); HEMOGLOBIN. 11.6 g/dL (12.0-16.0); MEAN CORPUSCULAR HEMOGLOBIN 26.7 pg (28.0-32.0); MEAN CORPUSCULAR VOLUME 79.8 fL (81.0-99.0); MEAN PLATELET VOLUME 10.4 fl (7.4-10.4); PLATELET 102 x1000/uL (130-400); RED BLOOD CELL COUNT 4.34 mill/uL (4.2-5.4); RED CELL DISTRIBUTION WIDTH 15.3 % (11.6-14.6)
[2020-09-18 06:05] LABS: CHLORIDE 110 mEq/L (98-107)
[2020-09-18] MEDS: IPRATROPIUM/ALBUTEROL 0.5-3(2.5)MG/3ML NEB HHN SCH ×3 (08:35→20:13)
[2020-09-18 09:09] LABS: BG BASE EXCESS -2.9 mmol/L (-2.0-2.0); BG CARBOXYHEMOGLOBIN 0.5 % (0.5-1.5); BG DEOXYHEMOGLOBIN 2.9 % (0.0-5.0); BG FRACTION INSPIRED OXYGEN 75; BG HCO3 ACT 21.3 mmol/L (22.0-26.0); BG OXYGEN SATURATION 97.1 % (92.0-98.5); BG OXYHEMOGLOBIN 96.6 % (94.0-97.0); BG PCO2 35.1 mmHg (35.0-45.0); BG PH 7.401 (7.350-7.450); BG PO2 110.4 mmHg (75.0-100.0); BG SAMPLE SITE RIGHT RADIAL; BG TOTAL HEMOGLOBIN 11.9 g/dL (12.0-18.0); BG VENT MODE VENT- PRVC
[2020-09-18] MEDS ORDERED: LACTULOSE 20G/30ML UDC PO NR (10:15)
[2020-09-18] MEDS: FAMOTIDINE 20MG TABLET PO SCH (10:46)
[2020-09-18] MEDS: ENOXAPARIN 40MG/0.4ML SYR SUBCUT SCH (10:46)
[2020-09-18] MEDS: DOCUSATE SODIUM 100MG CAPSULE PO SCH (10:46)
[2020-09-18] MEDS: LISINOPRIL 20MG TABLET PO SCH (10:47)
[2020-09-18] MEDS: ASCORBIC ACID 500 MG TABLET PO SCH ×2 (10:47→20:01)
[2020-09-18] MEDS: DEXAMETHASONE 10 MG/ML VIAL IV SCH (10:47)
[2020-09-18] MEDS: INSULIN GLARGINE UD 100 UNITS/ML SYR SUBCUT SCH ×2 (10:48→21:30)
[2020-09-18 10:55] LABS: PLATELET ESTIMATE DECREASED
[2020-09-18] MEDS: PIPERACILLIN/TAZOBACTAM 3.375 G in DEXT 5% WATER 100 ML IV SCH ×3 (12:44→23:07)
[2020-09-18] MEDS: FENTANYL CITRATE 2,500 MCG in SODIUM CHLORIDE 0.9% 200 ML IV PRN (14:47)
[2020-09-19] VITALS (98 sets, daily range): BP systolic 106–170; BP diastolic 42–113
[2020-09-19] MEDS: IPRATROPIUM/ALBUTEROL 0.5-3(2.5)MG/3ML NEB HHN SCH ×3 (00:40→20:54)
[2020-09-19] MEDS: FENTANYL CITRATE 2,500 MCG in SODIUM CHLORIDE 0.9% 200 ML IV PRN (02:11)
[2020-09-19] MEDS: PIPERACILLIN/TAZOBACTAM 3.375 G in DEXT 5% WATER 100 ML IV SCH ×4 (05:00→23:00)
[2020-09-19] MEDS: BLOOD SUGAR DIAGNOSTIC STRIP TEST SCH ×4 (05:00→23:01)
[2020-09-19] MEDS: SODIUM CHLORIDE 0.9% 1,000 ML IV SCH ×2 (05:00→19:35)
[2020-09-19] MEDS: INSULIN LISPRO 100 UNITS/ML SUBCUT SCH ×4 (05:12→23:07)
[2020-09-19] MEDS: MIDAZOLAM HCL 100 MG in SODIUM CHLORIDE 0.9% 80 ML IV PRN ×2 (05:24→23:19)
[2020-09-19 05:46] LABS: CHLORIDE 115 mEq/L (98-107)
[2020-09-19 05:47] LABS: HEMATOCRIT. 32.5 % (36.0-48.0); HEMOGLOBIN. 10.7 g/dL (12.0-16.0); MEAN CORPUSCULAR HEMOGLOBIN 26.8 pg (28.0-32.0); MEAN CORPUSCULAR VOLUME 81.2 fL (81.0-99.0); MEAN PLATELET VOLUME 10.6 fl (7.4-10.4); PLATELET 82 x1000/uL (130-400); RED CELL DISTRIBUTION WIDTH 15.2 % (11.6-14.6)
[2020-09-19 08:54] LABS: BG BASE EXCESS -2.1 mmol/L (-2.0-2.0); BG CARBOXYHEMOGLOBIN 0.3 % (0.5-1.5); BG DEOXYHEMOGLOBIN 5.4 % (0.0-5.0); BG FRACTION INSPIRED OXYGEN 70; BG HCO3 ACT 22.9 mmol/L (22.0-26.0); BG METHEMOGLOBIN 0.6 % (0.0-1.5); BG OXYGEN SATURATION 94.6 % (92.0-98.5); BG OXYHEMOGLOBIN 93.7 % (94.0-97.0); BG PH 7.376 (7.350-7.450); BG PO2 82.5 mmHg (75.0-100.0); BG SAMPLE SITE LEFT RADIAL; BG TOTAL HEMOGLOBIN 11.6 g/dL (12.0-18.0); BG VENT MODE VENT- PRVC
[2020-09-19] MEDS: AMLODIPINE 10MG TABLET PO SCH (08:58)
[2020-09-19] MEDS: LISINOPRIL 20MG TABLET PO SCH (08:58)
[2020-09-19] MEDS: DEXAMETHASONE 10 MG/ML VIAL IV SCH (08:58)
[2020-09-19] MEDS: ASCORBIC ACID 500 MG TABLET PO SCH ×2 (08:59→20:00)
[2020-09-19] MEDS: DOCUSATE SODIUM 100MG CAPSULE PO SCH (08:59)
[2020-09-19] MEDS: FAMOTIDINE 20MG TABLET PO SCH (08:59)
[2020-09-19] MEDS: ENOXAPARIN 40MG/0.4ML SYR SUBCUT SCH (09:00)
[2020-09-19] MEDS: INSULIN GLARGINE UD 100 UNITS/ML SYR SUBCUT SCH ×2 (09:24→21:13)
[2020-09-19 12:57] LABS: PLATELET ESTIMATE DECREASED
[2020-09-19] MEDS: FENTANYL CITRATE/PF 2,500 MCG in SODIUM CHLORIDE 0.9% 200 ML IV PRN (15:18)
[2020-09-20] VITALS (92 sets, daily range): BP systolic 112–146; BP diastolic 55–112
[2020-09-20] MEDS: IPRATROPIUM/ALBUTEROL 0.5-3(2.5)MG/3ML NEB HHN SCH ×4 (00:52→20:44)
[2020-09-20] MEDS: FENTANYL CITRATE/PF 2,500 MCG in SODIUM CHLORIDE 0.9% 200 ML IV PRN ×2 (03:44→14:48)
[2020-09-20 04:46] LABS: HEMATOCRIT. 35.9 % (36.0-48.0); HEMOGLOBIN. 11.5 g/dL (12.0-16.0); MEAN CORPUSCULAR VOLUME 84.1 fL (81.0-99.0); MEAN PLATELET VOLUME 10.7 fl (7.4-10.4); PLATELET 72 x1000/uL (130-400); RED BLOOD CELL COUNT 4.27 mill/uL (4.2-5.4); RED CELL DISTRIBUTION WIDTH 15.6 % (11.6-14.6)
[2020-09-20 04:59] LABS: CHLORIDE 114 mEq/L (98-107)
[2020-09-20] MEDS: BLOOD SUGAR DIAGNOSTIC STRIP TEST SCH ×3 (05:18→17:58)
[2020-09-20] MEDS: PIPERACILLIN/TAZOBACTAM 3.375 G in DEXT 5% WATER 100 ML IV SCH ×2 (05:19→14:14)
[2020-09-20] MEDS: INSULIN LISPRO 100 UNITS/ML SUBCUT SCH ×3 (05:21→17:57)
[2020-09-20 07:56] LABS: PLATELET ESTIMATE DECREASED
[2020-09-20 09:10] LABS: BG BASE EXCESS -3.4 mmol/L (-2.0-2.0); BG CARBOXYHEMOGLOBIN 0.2 % (0.5-1.5); BG DEOXYHEMOGLOBIN 17.6 % (0.0-5.0); BG FRACTION INSPIRED OXYGEN 80; BG HCO3 ACT 22.2 mmol/L (22.0-26.0); BG METHEMOGLOBIN 0.2 % (0.0-1.5); BG OXYGEN SATURATION 82.3 % (92.0-98.5); BG PCO2 42.3 mmHg (35.0-45.0); BG PH 7.338 (7.350-7.450); BG PO2 51.4 mmHg (75.0-100.0); BG SAMPLE SITE LEFT RADIAL; BG TOTAL HEMOGLOBIN 11.1 g/dL (12.0-18.0); BG VENT MODE VENT- PRVC
[2020-09-20] MEDS: AMLODIPINE 10MG TABLET PO SCH (10:20)
[2020-09-20] MEDS: DOCUSATE SODIUM SUGAR FREE 100MG/10ML UDC NG SCH (10:20)
[2020-09-20] MEDS: DEXAMETHASONE 10 MG/ML VIAL IV SCH (10:20)
[2020-09-20] MEDS: ASCORBIC ACID 500 MG TABLET PO SCH ×2 (10:20→21:13)
[2020-09-20] MEDS: FAMOTIDINE 20MG TABLET PO SCH (10:20)
[2020-09-20] MEDS: LISINOPRIL 20MG TABLET PO SCH (10:20)
[2020-09-20] MEDS: INSULIN GLARGINE UD 100 UNITS/ML SYR SUBCUT SCH ×2 (10:22→21:14)
[2020-09-20] MEDS: MIDAZOLAM HCL 100 MG in SODIUM CHLORIDE 0.9% 80 ML IV PRN ×2 (12:18→21:15)
[2020-09-20] MEDS: METRONIDAZOLE 500 MG PREMIX 100 ML IV SCH (17:57)
[2020-09-20] MEDS: CEFEPIME 1,000 MG in DEXTROSE 5% WATER 50 ML IV SCH (20:03)
[2020-09-20] MEDS ORDERED: IOHEXOL-350 100 ML BOTTLE ONE (23:07)
[2020-09-21] VITALS (86 sets, daily range): BP systolic 110–142; BP diastolic 54–80
[2020-09-21] MEDS: BLOOD SUGAR DIAGNOSTIC STRIP TEST SCH ×4 (00:16→23:56)
[2020-09-21] MEDS: IPRATROPIUM/ALBUTEROL 0.5-3(2.5)MG/3ML NEB HHN SCH ×3 (00:30→14:01)
[2020-09-21] MEDS: FENTANYL CITRATE/PF 2,500 MCG in SODIUM CHLORIDE 0.9% 200 ML IV PRN ×3 (00:56→23:04)
[2020-09-21] MEDS: METRONIDAZOLE 500 MG PREMIX 100 ML IV SCH ×2 (00:57→08:39)
[2020-09-21] MEDS: CEFEPIME 1,000 MG in DEXTROSE 5% WATER 50 ML IV SCH ×3 (04:01→20:16)
[2020-09-21 05:50] LABS: HEMATOCRIT. 32.8 % (36.0-48.0); HEMOGLOBIN. 10.8 g/dL (12.0-16.0); MEAN CORPUSCULAR HEMOGLOBIN 26.9 pg (28.0-32.0); MEAN CORPUSCULAR VOLUME 81.8 fL (81.0-99.0); MEAN PLATELET VOLUME 11.2 fl (7.4-10.4); PLATELET 76 x1000/uL (130-400); RED BLOOD CELL COUNT 4.01 mill/uL (4.2-5.4); RED CELL DISTRIBUTION WIDTH 15.8 % (11.6-14.6)
[2020-09-21 06:00] LABS: CHLORIDE 115 mEq/L (98-107)
[2020-09-21] MEDS: MIDAZOLAM HCL 100 MG in SODIUM CHLORIDE 0.9% 80 ML IV PRN ×2 (07:48→18:34)
[2020-09-21] MEDS: DOCUSATE SODIUM SUGAR FREE 100MG/10ML UDC NG SCH (08:39)
[2020-09-21] MEDS: DEXAMETHASONE 10 MG/ML VIAL IV SCH (08:39)
[2020-09-21] MEDS: LISINOPRIL 20MG TABLET PO SCH (08:39)
[2020-09-21] MEDS: FAMOTIDINE 20MG TABLET PO SCH (08:39)
[2020-09-21] MEDS: ASCORBIC ACID 500 MG TABLET PO SCH ×2 (08:40→20:16)
[2020-09-21] MEDS: AMLODIPINE 10MG TABLET PO SCH (08:40)
[2020-09-21 09:19] LABS: BG CARBOXYHEMOGLOBIN 0.2 % (0.5-1.5); BG DEOXYHEMOGLOBIN 10.9 % (0.0-5.0); BG FRACTION INSPIRED OXYGEN 80; BG HCO3 ACT 24.1 mmol/L (22.0-26.0); BG METHEMOGLOBIN 0.3 % (0.0-1.5); BG OXYHEMOGLOBIN 88.6 % (94.0-97.0); BG PCO2 41.7 mmHg (35.0-45.0); BG PH 7.379 (7.350-7.450); BG PO2 60.4 mmHg (75.0-100.0); BG SAMPLE SITE LEFT RADIAL; BG TOTAL HEMOGLOBIN 11.1 g/dL (12.0-18.0); BG VENT MODE VENT - PRVC
[2020-09-21] MEDS: INSULIN GLARGINE UD 100 UNITS/ML SYR SUBCUT SCH (10:00)
[2020-09-21] MEDS: INSULIN LISPRO 100 UNITS/ML SUBCUT SCH ×4 (11:37→23:58)
[2020-09-21 12:41] LABS: PLATELET ESTIMATE DECREASED
[2020-09-21] MEDS: METHYLPREDNISOLONE SOD SUCC 40 MG/ML VIAL IV SCH ×2 (16:12→22:16)
[2020-09-21] MEDS: ERGOCALCIFEROL 8000UNITS/ML 60ML GT SCH (16:12)
[2020-09-22] VITALS (96 sets, daily range): BP systolic 98–147; BP diastolic 46–76
[2020-09-22] MEDS: IPRATROPIUM/ALBUTEROL 0.5-3(2.5)MG/3ML NEB HHN SCH ×5 (00:18→20:54)
[2020-09-22] MEDS: CEFEPIME 1,000 MG in DEXTROSE 5% WATER 50 ML IV SCH ×3 (03:40→20:07)
[2020-09-22 05:51] LABS: CHLORIDE 112 mEq/L (98-107)
[2020-09-22 05:52] LABS: HEMOGLOBIN. 11.7 g/dL (12.0-16.0); MEAN CORPUSCULAR HEMOGLOBIN 26.9 pg (28.0-32.0); MEAN CORPUSCULAR VOLUME 82.3 fL (81.0-99.0); MEAN PLATELET VOLUME 11.1 fl (7.4-10.4); PLATELET 85 x1000/uL (130-400); RED BLOOD CELL COUNT 4.37 mill/uL (4.2-5.4); RED CELL DISTRIBUTION WIDTH 15.9 % (11.6-14.6)
[2020-09-22] MEDS: BLOOD SUGAR DIAGNOSTIC STRIP TEST SCH ×4 (05:53→23:44)
[2020-09-22] MEDS: INSULIN LISPRO 100 UNITS/ML SUBCUT SCH ×4 (05:58→23:48)
[2020-09-22] MEDS: METHYLPREDNISOLONE SOD SUCC 40 MG/ML VIAL IV SCH ×3 (05:59→21:58)
[2020-09-22] MEDS ORDERED: SODIUM POLYSTYRENE SULFONATE 15 G/60 ML BOT PO ONE (06:45)
[2020-09-22] MEDS: ASCORBIC ACID 500 MG TABLET PO SCH ×2 (08:25→20:06)
[2020-09-22] MEDS: LISINOPRIL 20MG TABLET PO SCH (08:25)
[2020-09-22] MEDS: DOCUSATE SODIUM SUGAR FREE 100MG/10ML UDC NG SCH (08:25)
[2020-09-22] MEDS: FAMOTIDINE 20MG TABLET PO SCH (08:25)
[2020-09-22] MEDS: AMLODIPINE 10MG TABLET PO SCH (08:26)
[2020-09-22] MEDS: MIDAZOLAM HCL 100 MG in SODIUM CHLORIDE 0.9% 80 ML IV PRN ×2 (08:33→18:12)
[2020-09-22 08:38] LABS: BG CARBOXYHEMOGLOBIN 0.1 % (0.5-1.5); BG DEOXYHEMOGLOBIN 7.3 % (0.0-5.0); BG FRACTION INSPIRED OXYGEN 80; BG HCO3 ACT 23.2 mmol/L (22.0-26.0); BG METHEMOGLOBIN 0.3 % (0.0-1.5); BG OXYGEN SATURATION 92.7 % (92.0-98.5); BG OXYHEMOGLOBIN 92.3 % (94.0-97.0); BG PCO2 40.9 mmHg (35.0-45.0); BG PH 7.371 (7.350-7.450); BG PO2 72.9 mmHg (75.0-100.0); BG SAMPLE SITE LEFT RADIAL; BG TOTAL HEMOGLOBIN 11.1 g/dL (12.0-18.0); BG VENT MODE PRVC
[2020-09-22] MEDS: FENTANYL CITRATE/PF 2,500 MCG in SODIUM CHLORIDE 0.9% 200 ML IV PRN ×2 (09:53→18:12)
[2020-09-22 12:22] LABS: PLATELET ESTIMATE DECREASED
[2020-09-23] VITALS (93 sets, daily range): BP systolic 104–149; BP diastolic 53–90
[2020-09-23] MEDS: IPRATROPIUM/ALBUTEROL 0.5-3(2.5)MG/3ML NEB HHN SCH ×4 (00:22→21:10)
[2020-09-23] MEDS: MIDAZOLAM HCL 100 MG in SODIUM CHLORIDE 0.9% 80 ML IV PRN ×2 (03:10→14:54)
[2020-09-23] MEDS: FENTANYL CITRATE/PF 2,500 MCG in SODIUM CHLORIDE 0.9% 200 ML IV PRN ×3 (03:11→18:40)
[2020-09-23] MEDS ORDERED: PROPOFOL 10MG/ML 100ML 100 ML IV PRN (03:15)
[2020-09-23] MEDS: CEFEPIME 1,000 MG in DEXTROSE 5% WATER 50 ML IV SCH ×3 (03:34→20:27)
[2020-09-23 05:39] LABS: CHLORIDE 113 mEq/L (98-107)
[2020-09-23] MEDS: BLOOD SUGAR DIAGNOSTIC STRIP TEST SCH ×4 (05:44→23:26)
[2020-09-23] MEDS: METHYLPREDNISOLONE SOD SUCC 40 MG/ML VIAL IV SCH ×3 (05:46→21:03)
[2020-09-23] MEDS: INSULIN LISPRO 100 UNITS/ML SUBCUT SCH ×4 (05:47→23:09)
[2020-09-23 05:51] LABS: HEMOGLOBIN. 12.2 g/dL (12.0-16.0); MEAN CORPUSCULAR HEMOGLOBIN 26.9 pg (28.0-32.0); MEAN CORPUSCULAR VOLUME 83.7 fL (81.0-99.0); MEAN PLATELET VOLUME 11.7 fl (7.4-10.4); PLATELET 94 x1000/uL (130-400); RED BLOOD CELL COUNT 4.54 mill/uL (4.2-5.4); RED CELL DISTRIBUTION WIDTH 15.9 % (11.6-14.6)
[2020-09-23] MEDS ORDERED: LIDOCAINE HCL 1% 20ML VIAL (Pyxis) INJ ONE (08:37)
[2020-09-23] MEDS: FAMOTIDINE 20MG TABLET PO SCH (08:41)
[2020-09-23] MEDS: ASCORBIC ACID 500 MG TABLET PO SCH ×2 (08:41→20:27)
[2020-09-23] MEDS: DOCUSATE SODIUM SUGAR FREE 100MG/10ML UDC NG SCH (08:41)
[2020-09-23] MEDS: AMLODIPINE 10MG TABLET PO SCH (08:41)
[2020-09-23] MEDS: LISINOPRIL 20MG TABLET PO SCH (08:42)
[2020-09-23 09:13] LABS: BG BASE EXCESS -0.6 mmol/L (-2.0-2.0); BG CARBOXYHEMOGLOBIN 0.4 % (0.5-1.5); BG DEOXYHEMOGLOBIN 11.3 % (0.0-5.0); BG FRACTION INSPIRED OXYGEN 80; BG HCO3 ACT 25.7 mmol/L (22.0-26.0); BG METHEMOGLOBIN 0.2 % (0.0-1.5); BG OXYGEN SATURATION 88.6 % (92.0-98.5); BG OXYHEMOGLOBIN 88.1 % (94.0-97.0); BG PCO2 49.8 mmHg (35.0-45.0); BG PH 7.331 (7.350-7.450); BG PO2 61.6 mmHg (75.0-100.0); BG SAMPLE SITE RIGHT RADIAL; BG TOTAL HEMOGLOBIN 11.5 g/dL (12.0-18.0); BG VENT MODE VENT- PRVC
[2020-09-23 13:15] LABS: PLATELET ESTIMATE SLIGHTLY DECREASED
[2020-09-24] VITALS (94 sets, daily range): BP systolic 108–158; BP diastolic 57–94
[2020-09-24] MEDS: IPRATROPIUM/ALBUTEROL 0.5-3(2.5)MG/3ML NEB HHN SCH ×4 (00:58→20:58)
[2020-09-24] MEDS: MIDAZOLAM HCL 100 MG in SODIUM CHLORIDE 0.9% 80 ML IV PRN ×2 (02:48→15:01)
[2020-09-24] MEDS: INSULIN LISPRO 100 UNITS/ML SUBCUT SCH ×4 (05:16→23:20)
[2020-09-24] MEDS: BLOOD SUGAR DIAGNOSTIC STRIP TEST SCH ×4 (05:16→23:16)
[2020-09-24] MEDS: METHYLPREDNISOLONE SOD SUCC 40 MG/ML VIAL IV SCH ×3 (05:18→21:35)
[2020-09-24 05:49] LABS: CHLORIDE 114 mEq/L (98-107)
[2020-09-24] MEDS: FENTANYL CITRATE/PF 2,500 MCG in SODIUM CHLORIDE 0.9% 200 ML IV PRN ×2 (07:17→20:09)
[2020-09-24] MEDS: DOCUSATE SODIUM SUGAR FREE 100MG/10ML UDC NG SCH (08:43)
[2020-09-24] MEDS: LISINOPRIL 20MG TABLET PO SCH (08:43)
[2020-09-24] MEDS: ASCORBIC ACID 500 MG TABLET PO SCH ×2 (08:43→20:20)
[2020-09-24] MEDS: AMLODIPINE 10MG TABLET PO SCH (08:44)
[2020-09-24] MEDS: FAMOTIDINE 20MG TABLET PO SCH (08:44)
[2020-09-24] MEDS ORDERED: SODIUM POLYSTYRENE SULFONATE 15 G/60 ML BOT PO SCH (09:00)
[2020-09-24 09:44] LABS: BG BASE EXCESS -0.8 mmol/L (-2.0-2.0); BG CARBOXYHEMOGLOBIN 0.9 % (0.5-1.5); BG DEOXYHEMOGLOBIN 13.4 % (0.0-5.0); BG FRACTION INSPIRED OXYGEN 80; BG HCO3 ACT 25.2 mmol/L (22.0-26.0); BG METHEMOGLOBIN 0.1 % (0.0-1.5); BG OXYGEN SATURATION 86.5 % (92.0-98.5); BG OXYHEMOGLOBIN 85.6 % (94.0-97.0); BG PCO2 46.7 mmHg (35.0-45.0); BG SAMPLE SITE RIGHT RADIAL; BG TOTAL HEMOGLOBIN 13.8 g/dL (12.0-18.0); BG VENT MODE VENT-PRVC
[2020-09-24 11:43] LABS: HEMATOCRIT. 33.1 % (36.0-48.0); HEMOGLOBIN. 11.1 g/dL (12.0-16.0); MEAN CORPUSCULAR HEMOGLOBIN 27.3 pg (28.0-32.0); MEAN CORPUSCULAR VOLUME 81.8 fL (81.0-99.0); MEAN PLATELET VOLUME 11.6 fl (7.4-10.4); PLATELET 81 x1000/uL (130-400); RED BLOOD CELL COUNT 4.05 mill/uL (4.2-5.4); RED CELL DISTRIBUTION WIDTH 16.1 % (11.6-14.6)
[2020-09-24 13:54] LABS: NUCLEATED RED BLOOD CELLS 1 /100 WBC
[2020-09-24 13:55] LABS: PLATELET ESTIMATE DECREASED
[2020-09-25] VITALS (94 sets, daily range): BP systolic 95–158; BP diastolic 22–81
[2020-09-25] MEDS: IPRATROPIUM/ALBUTEROL 0.5-3(2.5)MG/3ML NEB HHN SCH ×4 (02:05→21:00)
[2020-09-25] MEDS: MIDAZOLAM HCL 100 MG in SODIUM CHLORIDE 0.9% 80 ML IV PRN ×2 (02:36→11:13)
[2020-09-25] MEDS: METHYLPREDNISOLONE SOD SUCC 40 MG/ML VIAL IV SCH ×3 (05:00→21:45)
[2020-09-25] MEDS: BLOOD SUGAR DIAGNOSTIC STRIP TEST SCH ×4 (05:00→23:42)
[2020-09-25] MEDS: INSULIN LISPRO 100 UNITS/ML SUBCUT SCH ×4 (05:19→23:47)
[2020-09-25 05:38] LABS: HEMATOCRIT. 33.3 % (36.0-48.0); HEMOGLOBIN. 10.7 g/dL (12.0-16.0); MEAN CORPUSCULAR HEMOGLOBIN 26.4 pg (28.0-32.0); MEAN PLATELET VOLUME 11.6 fl (7.4-10.4); PLATELET 76 x1000/uL (130-400); RED BLOOD CELL COUNT 4.06 mill/uL (4.2-5.4); RED CELL DISTRIBUTION WIDTH 15.8 % (11.6-14.6)
[2020-09-25 05:46] LABS: CHLORIDE 115 mEq/L (98-107)
[2020-09-25] MEDS: FENTANYL CITRATE/PF 2,500 MCG in SODIUM CHLORIDE 0.9% 200 ML IV PRN ×3 (05:46→21:53)
[2020-09-25] MEDS: DOCUSATE SODIUM SUGAR FREE 100MG/10ML UDC NG SCH (08:24)
[2020-09-25] MEDS: FAMOTIDINE 20MG TABLET PO SCH (08:25)
[2020-09-25] MEDS: LISINOPRIL 20MG TABLET PO SCH (08:25)
[2020-09-25] MEDS: ASCORBIC ACID 500 MG TABLET PO SCH ×2 (08:25→21:45)
[2020-09-25] MEDS: AMLODIPINE 10MG TABLET PO SCH (08:25)
[2020-09-25 10:06] LABS: BG CARBOXYHEMOGLOBIN 0.4 % (0.5-1.5); BG DEOXYHEMOGLOBIN 24.7 % (0.0-5.0); BG FRACTION INSPIRED OXYGEN 60; BG HCO3 ACT 27.2 mmol/L (22.0-26.0); BG OXYGEN SATURATION 75.2 % (92.0-98.5); BG OXYHEMOGLOBIN 74.9 % (94.0-97.0); BG PCO2 49.8 mmHg (35.0-45.0); BG PH 7.355 (7.350-7.450); BG PO2 44.1 mmHg (75.0-100.0); BG SAMPLE SITE LEFT RADIAL; BG TOTAL HEMOGLOBIN 12.7 g/dL (12.0-18.0); BG VENT MODE VENT - PRVC
[2020-09-25 14:31] LABS: NUCLEATED RED BLOOD CELLS 1 /100 WBC
[2020-09-25 14:32] LABS: PLATELET ESTIMATE DECREASED
[2020-09-25] MEDS ORDERED: INSULIN GLARGINE UD 100 UNITS/ML SYR SUBCUT SCH (22:00)
[2020-09-26] VITALS (94 sets, daily range): BP systolic 98–147; BP diastolic 38–118
[2020-09-26] MEDS: IPRATROPIUM/ALBUTEROL 0.5-3(2.5)MG/3ML NEB HHN SCH ×4 (00:41→20:23)
[2020-09-26] MEDS: MIDAZOLAM HCL 100 MG in SODIUM CHLORIDE 0.9% 80 ML IV PRN ×2 (02:02→17:45)
[2020-09-26] MEDS: BLOOD SUGAR DIAGNOSTIC STRIP TEST SCH ×4 (05:44→23:40)
[2020-09-26 05:48] LABS: HEMATOCRIT. 30.3 % (36.0-48.0); HEMOGLOBIN. 10.2 g/dL (12.0-16.0); MEAN CORPUSCULAR HEMOGLOBIN 27.7 pg (28.0-32.0); MEAN CORPUSCULAR VOLUME 81.9 fL (81.0-99.0); MEAN PLATELET VOLUME 11.6 fl (7.4-10.4); PLATELET 68 x1000/uL (130-400); RED CELL DISTRIBUTION WIDTH 15.9 % (11.6-14.6)
[2020-09-26] MEDS: METHYLPREDNISOLONE SOD SUCC 40 MG/ML VIAL IV SCH ×3 (05:49→22:08)
[2020-09-26] MEDS: INSULIN LISPRO 100 UNITS/ML SUBCUT SCH ×4 (05:50→23:41)
[2020-09-26 05:54] LABS: CHLORIDE 114 mEq/L (98-107)
[2020-09-26] MEDS: AMLODIPINE 10MG TABLET PO SCH (09:58)
[2020-09-26] MEDS: FAMOTIDINE 20MG TABLET PO SCH (09:58)
[2020-09-26] MEDS: ASCORBIC ACID 500 MG TABLET PO SCH ×2 (09:58→20:16)
[2020-09-26] MEDS: DOCUSATE SODIUM SUGAR FREE 100MG/10ML UDC NG SCH (09:58)
[2020-09-26] MEDS: LISINOPRIL 20MG TABLET PO SCH (09:58)
[2020-09-26] MEDS: FENTANYL CITRATE/PF 2,500 MCG in SODIUM CHLORIDE 0.9% 200 ML IV PRN ×2 (10:03→20:06)
[2020-09-26 10:06] LABS: BG CARBOXYHEMOGLOBIN 0.3 % (0.5-1.5); BG DEOXYHEMOGLOBIN 8.2 % (0.0-5.0); BG FRACTION INSPIRED OXYGEN 100; BG HCO3 ACT 25.9 mmol/L (22.0-26.0); BG OXYGEN SATURATION 91.8 % (92.0-98.5); BG OXYHEMOGLOBIN 91.5 % (94.0-97.0); BG PCO2 47.8 mmHg (35.0-45.0); BG PH 7.352 (7.350-7.450); BG PO2 66.5 mmHg (75.0-100.0); BG SAMPLE SITE RIGHT RADIAL; BG TOTAL HEMOGLOBIN 11.2 g/dL (12.0-18.0); BG VENT MODE PRVC
[2020-09-26] MEDS ORDERED: LACTULOSE 20G/30ML UDC PO SCH (10:15)
[2020-09-26 14:51] LABS: PLATELET ESTIMATE DECREASED
[2020-09-26] MEDS ORDERED: INSULIN GLARGINE UD 100 UNITS/ML SYR SUBCUT SCH (22:00)
[2020-09-27] VITALS (98 sets, daily range): BP systolic 96–168; BP diastolic 38–100
[2020-09-27 05:52] LABS: HEMATOCRIT. 33.3 % (36.0-48.0); HEMOGLOBIN. 11.2 g/dL (12.0-16.0); MEAN CORPUSCULAR HEMOGLOBIN 27.4 pg (28.0-32.0); PLATELET 88 x1000/uL (130-400); RED BLOOD CELL COUNT 4.11 mill/uL (4.2-5.4); RED CELL DISTRIBUTION WIDTH 16.1 % (11.6-14.6)
[2020-09-27] MEDS: METHYLPREDNISOLONE SOD SUCC 40 MG/ML VIAL IV SCH ×3 (05:58→22:34)
[2020-09-27] MEDS: BLOOD SUGAR DIAGNOSTIC STRIP TEST SCH ×4 (05:58→23:51)
[2020-09-27] MEDS: INSULIN LISPRO 100 UNITS/ML SUBCUT SCH ×4 (06:00→23:54)
[2020-09-27 06:18] LABS: CHLORIDE 111 mEq/L (98-107)
[2020-09-27] MEDS: FENTANYL CITRATE/PF 2,500 MCG in SODIUM CHLORIDE 0.9% 200 ML IV PRN ×2 (07:01→18:11)
[2020-09-27] MEDS: IPRATROPIUM/ALBUTEROL 0.5-3(2.5)MG/3ML NEB HHN SCH ×3 (08:08→20:35)
[2020-09-27] MEDS: ASCORBIC ACID 500 MG TABLET PO SCH ×2 (08:33→20:03)
[2020-09-27] MEDS: DOCUSATE SODIUM SUGAR FREE 100MG/10ML UDC NG SCH (08:33)
[2020-09-27] MEDS: AMLODIPINE 10MG TABLET PO SCH (08:33)
[2020-09-27] MEDS: LISINOPRIL 20MG TABLET PO SCH (08:34)
[2020-09-27] MEDS: FAMOTIDINE 20MG TABLET PO SCH (08:34)
[2020-09-27] MEDS: MIDAZOLAM HCL 100 MG in SODIUM CHLORIDE 0.9% 80 ML IV PRN (08:36)
[2020-09-27 12:27] LABS: BG BASE EXCESS -2.2 mmol/L (-2.0-2.0); BG CARBOXYHEMOGLOBIN 0.9 % (0.5-1.5); BG DEOXYHEMOGLOBIN 7.4 % (0.0-5.0); BG FRACTION INSPIRED OXYGEN 100; BG HCO3 ACT 23.7 mmol/L (22.0-26.0); BG METHEMOGLOBIN 0.2 % (0.0-1.5); BG OXYGEN SATURATION 92.5 % (92.0-98.5); BG OXYHEMOGLOBIN 91.5 % (94.0-97.0); BG PCO2 45.1 mmHg (35.0-45.0); BG PH 7.339 (7.350-7.450); BG PO2 72.1 mmHg (75.0-100.0); BG SAMPLE SITE RIGHT RADIAL; BG TOTAL HEMOGLOBIN 12.5 g/dL (12.0-18.0); BG VENT MODE VENT - AC
[2020-09-27 13:33] LABS: PLATELET ESTIMATE DECREASED
[2020-09-27] MEDS: LACTULOSE 20G/30ML UDC PO PRN (18:17)
[2020-09-27] MEDS: INSULIN GLARGINE UD 100 UNITS/ML SYR SUBCUT SCH (22:34)
[2020-09-28] VITALS (99 sets, daily range): BP systolic 80–184; BP diastolic 19–142
[2020-09-28] MEDS: MIDAZOLAM HCL 100 MG in SODIUM CHLORIDE 0.9% 80 ML IV PRN ×3 (01:08→22:00)
[2020-09-28] MEDS: IPRATROPIUM/ALBUTEROL 0.5-3(2.5)MG/3ML NEB HHN SCH ×4 (02:24→20:23)
[2020-09-28] MEDS: FENTANYL CITRATE/PF 2,500 MCG in SODIUM CHLORIDE 0.9% 200 ML IV PRN ×2 (04:52→15:09)
[2020-09-28 04:59] LABS: HEMATOCRIT. 34.8 % (36.0-48.0); HEMOGLOBIN. 11.6 g/dL (12.0-16.0); MEAN CORPUSCULAR HEMOGLOBIN 27.6 pg (28.0-32.0); MEAN CORPUSCULAR VOLUME 82.7 fL (81.0-99.0); MEAN PLATELET VOLUME 12.2 fl (7.4-10.4); PLATELET 100 x1000/uL (130-400); RED BLOOD CELL COUNT 4.21 mill/uL (4.2-5.4); RED CELL DISTRIBUTION WIDTH 16.2 % (11.6-14.6)
[2020-09-28 05:09] LABS: CHLORIDE 112 mEq/L (98-107)
[2020-09-28] MEDS: BLOOD SUGAR DIAGNOSTIC STRIP TEST SCH ×3 (06:10→17:50)
[2020-09-28] MEDS: METHYLPREDNISOLONE SOD SUCC 40 MG/ML VIAL IV SCH ×3 (06:10→22:00)
[2020-09-28] MEDS: INSULIN LISPRO 100 UNITS/ML SUBCUT SCH ×3 (06:15→17:51)
[2020-09-28] MEDS: DOCUSATE SODIUM SUGAR FREE 100MG/10ML UDC NG SCH (09:13)
[2020-09-28] MEDS: ASCORBIC ACID 500 MG TABLET PO SCH ×2 (09:13→20:05)
[2020-09-28] MEDS: FAMOTIDINE 20MG TABLET PO SCH (09:14)
[2020-09-28] MEDS: LISINOPRIL 20MG TABLET PO SCH (09:14)
[2020-09-28] MEDS: AMLODIPINE 10MG TABLET PO SCH (09:14)
[2020-09-28] MEDS: INSULIN GLARGINE UD 100 UNITS/ML SYR SUBCUT SCH ×2 (09:15→22:01)
[2020-09-28 09:49] LABS: BG BASE EXCESS 1.3 mmol/L (-2.0-2.0); BG CARBOXYHEMOGLOBIN 0.9 % (0.5-1.5); BG DEOXYHEMOGLOBIN 7.2 % (0.0-5.0); BG FRACTION INSPIRED OXYGEN 100; BG HCO3 ACT 26.7 mmol/L (22.0-26.0); BG METHEMOGLOBIN 0.2 % (0.0-1.5); BG OXYGEN SATURATION 92.7 % (92.0-98.5); BG OXYHEMOGLOBIN 91.7 % (94.0-97.0); BG PCO2 45.4 mmHg (35.0-45.0); BG PH 7.387 (7.350-7.450); BG PO2 69.7 mmHg (75.0-100.0); BG SAMPLE SITE RIGHT RADIAL; BG TOTAL HEMOGLOBIN 11.9 g/dL (12.0-18.0); BG VENT MODE VENT - PRVC
[2020-09-28 13:54] LABS: PLATELET ESTIMATE DECREASED
[2020-09-28] MEDS: ERGOCALCIFEROL 8000UNITS/ML 60ML GT SCH (15:08)
[2020-09-29] VITALS (83 sets, daily range): BP systolic 97–170; BP diastolic 49–112
[2020-09-29] MEDS: INSULIN LISPRO 100 UNITS/ML SUBCUT SCH ×5 (00:18→23:54)
[2020-09-29] MEDS: FENTANYL CITRATE/PF 2,500 MCG in SODIUM CHLORIDE 0.9% 200 ML IV PRN ×3 (00:35→23:00)
[2020-09-29] MEDS: IPRATROPIUM/ALBUTEROL 0.5-3(2.5)MG/3ML NEB HHN SCH ×5 (01:46→20:50)
[2020-09-29] MEDS: BLOOD SUGAR DIAGNOSTIC STRIP TEST SCH ×4 (05:33→17:58)
[2020-09-29] MEDS: METHYLPREDNISOLONE SOD SUCC 40 MG/ML VIAL IV SCH ×3 (05:38→23:49)
[2020-09-29 05:57] LABS: CHLORIDE 111 mEq/L (98-107)
[2020-09-29 05:58] LABS: HEMATOCRIT. 37.8 % (36.0-48.0); HEMOGLOBIN. 12.3 g/dL (12.0-16.0); MEAN CORPUSCULAR HEMOGLOBIN 27.5 pg (28.0-32.0); MEAN CORPUSCULAR VOLUME 84.9 fL (81.0-99.0); RED BLOOD CELL COUNT 4.46 mill/uL (4.2-5.4); RED CELL DISTRIBUTION WIDTH 16.6 % (11.6-14.6)
[2020-09-29] MEDS ORDERED: BISACODYL 10MG SUPP PR SCH (09:00)
[2020-09-29] MEDS: ASCORBIC ACID 500 MG TABLET PO SCH ×2 (09:10→21:21)
[2020-09-29] MEDS: FAMOTIDINE 20MG TABLET PO SCH (09:10)
[2020-09-29] MEDS: AMLODIPINE 10MG TABLET PO SCH (09:11)
[2020-09-29] MEDS: LISINOPRIL 20MG TABLET PO SCH (09:11)
[2020-09-29] MEDS: DOCUSATE SODIUM SUGAR FREE 100MG/10ML UDC NG SCH (09:11)
[2020-09-29] MEDS: INSULIN GLARGINE UD 100 UNITS/ML SYR SUBCUT SCH ×2 (09:13→23:50)
[2020-09-29 10:18] LABS: MEAN PLATELET VOLUME 13.4 fl (7.4-10.4); PLATELET 62 x1000/uL (130-400); PLATELET ESTIMATE DECREASED
[2020-09-29] MEDS: MIDAZOLAM HCL 100 MG in SODIUM CHLORIDE 0.9% 80 ML IV PRN ×2 (11:04→19:30)
[2020-09-29 11:09] LABS: BG BASE EXCESS -2.6 mmol/L (-2.0-2.0); BG CARBOXYHEMOGLOBIN 1.1 % (0.5-1.5); BG DEOXYHEMOGLOBIN 16.5 % (0.0-5.0); BG FRACTION INSPIRED OXYGEN 100; BG HCO3 ACT 24.3 mmol/L (22.0-26.0); BG METHEMOGLOBIN 0.3 % (0.0-1.5); BG OXYGEN SATURATION 83.3 % (92.0-98.5); BG OXYHEMOGLOBIN 82.1 % (94.0-97.0); BG PCO2 51.1 mmHg (35.0-45.0); BG PH 7.295 (7.350-7.450); BG PO2 55.6 mmHg (75.0-100.0); BG SAMPLE SITE RIGHT RADIAL; BG TOTAL HEMOGLOBIN 12.3 g/dL (12.0-18.0); BG VENT MODE MASK - CPAP
[2020-09-29] MEDS ORDERED: SODIUM BICARBONATE 8.4% 1 MEQ/ML 50ML SYR IV NR (11:38)
[2020-09-29 14:46] LABS: BG BASE EXCESS 2.6 mmol/L (-2.0-2.0); BG CARBOXYHEMOGLOBIN 0.4 % (0.5-1.5); BG DEOXYHEMOGLOBIN 4.3 % (0.0-5.0); BG FRACTION INSPIRED OXYGEN 100; BG HCO3 ACT 28.4 mmol/L (22.0-26.0); BG METHEMOGLOBIN 0.1 % (0.0-1.5); BG OXYGEN SATURATION 95.7 % (92.0-98.5); BG OXYHEMOGLOBIN 95.2 % (94.0-97.0); BG PCO2 48.8 mmHg (35.0-45.0); BG PH 7.382 (7.350-7.450); BG SAMPLE SITE RIGHT RADIAL; BG VENT MODE VENT - PRVC
[2020-09-30] VITALS (91 sets, daily range): BP systolic 90–147; BP diastolic 46–80
[2020-09-30] MEDS: IPRATROPIUM/ALBUTEROL 0.5-3(2.5)MG/3ML NEB HHN SCH ×5 (02:21→21:35)
[2020-09-30 05:53] LABS: HEMATOCRIT. 32.9 % (36.0-48.0); HEMOGLOBIN. 10.7 g/dL (12.0-16.0); MEAN CORPUSCULAR HEMOGLOBIN 27.2 pg (28.0-32.0); MEAN PLATELET VOLUME 12.7 fl (7.4-10.4); PLATELET 72 x1000/uL (130-400); RED BLOOD CELL COUNT 3.92 mill/uL (4.2-5.4); RED CELL DISTRIBUTION WIDTH 16.7 % (11.6-14.6)
[2020-09-30] MEDS: BLOOD SUGAR DIAGNOSTIC STRIP TEST SCH ×5 (06:00→23:51)
[2020-09-30] MEDS: METHYLPREDNISOLONE SOD SUCC 40 MG/ML VIAL IV SCH ×3 (06:20→21:52)
[2020-09-30 06:44] LABS: CHLORIDE 113 mEq/L (98-107)
[2020-09-30] MEDS: FENTANYL CITRATE/PF 2,500 MCG in SODIUM CHLORIDE 0.9% 200 ML IV PRN ×2 (06:45→15:58)
[2020-09-30] MEDS: MIDAZOLAM HCL 100 MG in SODIUM CHLORIDE 0.9% 80 ML IV PRN ×2 (06:49→19:07)
[2020-09-30] MEDS: INSULIN LISPRO 100 UNITS/ML SUBCUT SCH ×4 (07:05→23:51)
[2020-09-30 07:50] LABS: PLATELET ESTIMATE DECREASED
[2020-09-30 09:51] LABS: BG BASE EXCESS 3.1 mmol/L (-2.0-2.0); BG CARBOXYHEMOGLOBIN 0.8 % (0.5-1.5); BG DEOXYHEMOGLOBIN 3.5 % (0.0-5.0); BG FRACTION INSPIRED OXYGEN 100; BG METHEMOGLOBIN 0.1 % (0.0-1.5); BG OXYGEN SATURATION 96.5 % (92.0-98.5); BG OXYHEMOGLOBIN 95.6 % (94.0-97.0); BG PCO2 29.5 mmHg (35.0-45.0); BG PH 7.546 (7.350-7.450); BG PO2 85.3 mmHg (75.0-100.0); BG SAMPLE SITE LEFT RADIAL; BG TOTAL HEMOGLOBIN 11.6 g/dL (12.0-18.0); BG VENT MODE VENT- PRVC
[2020-09-30] MEDS: ASCORBIC ACID 500 MG TABLET PO SCH ×2 (10:21→21:51)
[2020-09-30] MEDS: DOCUSATE SODIUM SUGAR FREE 100MG/10ML UDC NG SCH (10:21)
[2020-09-30] MEDS: LISINOPRIL 20MG TABLET PO SCH (10:22)
[2020-09-30] MEDS: AMLODIPINE 10MG TABLET PO SCH (10:22)
[2020-09-30] MEDS: FAMOTIDINE 20MG TABLET PO SCH (10:22)
[2020-09-30] MEDS: INSULIN GLARGINE UD 100 UNITS/ML SYR SUBCUT SCH ×2 (10:54→22:00)
[2020-10-01] VITALS (97 sets, daily range): BP systolic 69–195; BP diastolic 27–99
[2020-10-01] MEDS: FENTANYL CITRATE/PF 2,500 MCG in SODIUM CHLORIDE 0.9% 200 ML IV PRN ×3 (01:50→19:30)
[2020-10-01] MEDS: IPRATROPIUM/ALBUTEROL 0.5-3(2.5)MG/3ML NEB HHN SCH ×4 (02:35→20:44)
[2020-10-01 05:59] LABS: CHLORIDE 115 mEq/L (98-107)
[2020-10-01 06:00] LABS: HEMATOCRIT. 31.6 % (36.0-48.0); HEMOGLOBIN. 10.4 g/dL (12.0-16.0); MEAN CORPUSCULAR HEMOGLOBIN 27.6 pg (28.0-32.0); MEAN CORPUSCULAR VOLUME 84.3 fL (81.0-99.0); MEAN PLATELET VOLUME 10.3 fl (7.4-10.4); RED BLOOD CELL COUNT 3.75 mill/uL (4.2-5.4); RED CELL DISTRIBUTION WIDTH 17.1 % (11.6-14.6)
[2020-10-01] MEDS: BLOOD SUGAR DIAGNOSTIC STRIP TEST SCH ×3 (06:00→17:20)
[2020-10-01] MEDS: INSULIN LISPRO 100 UNITS/ML SUBCUT SCH ×4 (06:00→23:32)
[2020-10-01] MEDS: METHYLPREDNISOLONE SOD SUCC 40 MG/ML VIAL IV SCH ×3 (06:20→21:31)
[2020-10-01 07:12] LABS: PLATELET 38 x1000/uL (130-400)
[2020-10-01] MEDS: MIDAZOLAM HCL 100 MG in SODIUM CHLORIDE 0.9% 80 ML IV PRN ×2 (07:14→16:30)
[2020-10-01] MEDS: DOCUSATE SODIUM SUGAR FREE 100MG/10ML UDC NG SCH (09:08)
[2020-10-01] MEDS: LISINOPRIL 20MG TABLET PO SCH (09:09)
[2020-10-01] MEDS: AMLODIPINE 10MG TABLET PO SCH (09:09)
[2020-10-01] MEDS: FAMOTIDINE 20MG TABLET PO SCH (09:09)
[2020-10-01] MEDS: ASCORBIC ACID 500 MG TABLET PO SCH ×2 (09:09→21:30)
[2020-10-01] MEDS: INSULIN GLARGINE UD 100 UNITS/ML SYR SUBCUT SCH ×2 (09:10→23:27)
[2020-10-01 09:22] LABS: BG BASE EXCESS 0.4 mmol/L (-2.0-2.0); BG CARBOXYHEMOGLOBIN 0.4 % (0.5-1.5); BG DEOXYHEMOGLOBIN 4.4 % (0.0-5.0); BG FRACTION INSPIRED OXYGEN 90; BG HCO3 ACT 24.8 mmol/L (22.0-26.0); BG METHEMOGLOBIN 0.3 % (0.0-1.5); BG OXYGEN SATURATION 95.6 % (92.0-98.5); BG OXYHEMOGLOBIN 94.9 % (94.0-97.0); BG PCO2 38.9 mmHg (35.0-45.0); BG PH 7.422 (7.350-7.450); BG PO2 86.8 mmHg (75.0-100.0); BG SAMPLE SITE RIGHT RADIAL; BG TOTAL HEMOGLOBIN 10.8 g/dL (12.0-18.0); BG VENT MODE VENT- PRVC
[2020-10-01 10:42] LABS: PLATELET ESTIMATE MARKEDLY DECREASED
[2020-10-01] MEDS: PHENYLEPHRINE 100 MG in DEXT 5% WATER 240 ML IV PRN (15:42)
[2020-10-02] VITALS (92 sets, daily range): BP systolic 69–194; BP diastolic 18–111
[2020-10-02] MEDS: MIDAZOLAM HCL 100 MG in SODIUM CHLORIDE 0.9% 80 ML IV PRN ×3 (00:57→16:16)
[2020-10-02] MEDS: IPRATROPIUM/ALBUTEROL 0.5-3(2.5)MG/3ML NEB HHN SCH ×4 (02:01→21:00)
[2020-10-02] MEDS: FENTANYL CITRATE/PF 2,500 MCG in SODIUM CHLORIDE 0.9% 200 ML IV PRN ×3 (02:39→16:17)
[2020-10-02] MEDS: BLOOD SUGAR DIAGNOSTIC STRIP TEST SCH ×5 (06:00→22:00)
[2020-10-02 06:09] LABS: HEMATOCRIT. 34.7 % (36.0-48.0); HEMOGLOBIN. 11.3 g/dL (12.0-16.0); MEAN CORPUSCULAR HEMOGLOBIN 27.3 pg (28.0-32.0); MEAN CORPUSCULAR VOLUME 83.6 fL (81.0-99.0); MEAN PLATELET VOLUME 11.9 fl (7.4-10.4); PLATELET 97 x1000/uL (130-400); RED BLOOD CELL COUNT 4.15 mill/uL (4.2-5.4); RED CELL DISTRIBUTION WIDTH 17.6 % (11.6-14.6)
[2020-10-02 06:13] LABS: CHLORIDE 114 mEq/L (98-107)
[2020-10-02] MEDS: METHYLPREDNISOLONE SOD SUCC 40 MG/ML VIAL IV SCH ×3 (06:15→21:55)
[2020-10-02] MEDS: INSULIN LISPRO 100 UNITS/ML SUBCUT SCH ×4 (07:22→22:10)
[2020-10-02] MEDS ORDERED: LOSARTAN POTASSIUM 50 MG TABLET PO SCH (09:00)
[2020-10-02] MEDS: DOCUSATE SODIUM SUGAR FREE 100MG/10ML UDC NG SCH (09:17)
[2020-10-02] MEDS: FAMOTIDINE 20MG TABLET PO SCH (09:18)
[2020-10-02] MEDS: AMLODIPINE 10MG TABLET PO SCH (09:18)
[2020-10-02] MEDS: ASCORBIC ACID 500 MG TABLET PO SCH ×2 (09:18→21:55)
[2020-10-02 09:19] LABS: BG BASE EXCESS -0.3 mmol/L (-2.0-2.0); BG CARBOXYHEMOGLOBIN 1.3 % (0.5-1.5); BG DEOXYHEMOGLOBIN 16.9 % (0.0-5.0); BG FRACTION INSPIRED OXYGEN 100; BG METHEMOGLOBIN 0.1 % (0.0-1.5); BG OXYGEN SATURATION 82.9 % (92.0-98.5); BG OXYHEMOGLOBIN 81.7 % (94.0-97.0); BG PCO2 43.4 mmHg (35.0-45.0); BG PH 7.378 (7.350-7.450); BG PO2 51.1 mmHg (75.0-100.0); BG SAMPLE SITE LEFT RADIAL; BG TOTAL HEMOGLOBIN 12.1 g/dL (12.0-18.0); BG VENT MODE VENT- PRVC
[2020-10-02] MEDS: INSULIN GLARGINE UD 100 UNITS/ML SYR SUBCUT SCH ×2 (09:20→22:06)
[2020-10-02 12:26] LABS: PLATELET ESTIMATE SLIGHTLY DECREASED
[2020-10-02] MEDS: PHENYLEPHRINE 100 MG in DEXT 5% WATER 240 ML IV PRN (17:42)
[2020-10-03] VITALS (85 sets, daily range): BP systolic 88–159; BP diastolic 20–88
[2020-10-03] MEDS: FENTANYL CITRATE/PF 2,500 MCG in SODIUM CHLORIDE 0.9% 200 ML IV PRN ×4 (01:54→23:33)
[2020-10-03] MEDS: IPRATROPIUM/ALBUTEROL 0.5-3(2.5)MG/3ML NEB HHN SCH ×2 (02:53→20:37)
[2020-10-03 05:08] LABS: CHLORIDE 116 mEq/L (98-107)
[2020-10-03] MEDS: BLOOD SUGAR DIAGNOSTIC STRIP TEST SCH ×3 (05:52→18:09)
[2020-10-03] MEDS: INSULIN LISPRO 100 UNITS/ML SUBCUT SCH ×3 (05:52→18:00)
[2020-10-03] MEDS: METHYLPREDNISOLONE SOD SUCC 40 MG/ML VIAL IV SCH ×3 (06:00→21:14)
[2020-10-03] MEDS: MIDAZOLAM HCL 100 MG in SODIUM CHLORIDE 0.9% 80 ML IV PRN ×4 (08:23→22:34)
[2020-10-03 09:39] LABS: HEMATOCRIT. 31.9 % (36.0-48.0); HEMOGLOBIN. 10.7 g/dL (12.0-16.0); MEAN CORPUSCULAR HEMOGLOBIN 28.2 pg (28.0-32.0); MEAN PLATELET VOLUME 11.2 fl (7.4-10.4); RED BLOOD CELL COUNT 3.79 mill/uL (4.2-5.4); RED CELL DISTRIBUTION WIDTH 18.1 % (11.6-14.6)
[2020-10-03] MEDS: FAMOTIDINE 20MG TABLET PO SCH (09:44)
[2020-10-03] MEDS: ASCORBIC ACID 500 MG TABLET PO SCH ×2 (09:44→21:14)
[2020-10-03] MEDS: DOCUSATE SODIUM SUGAR FREE 100MG/10ML UDC NG SCH (09:44)
[2020-10-03] MEDS: INSULIN GLARGINE UD 100 UNITS/ML SYR SUBCUT SCH ×2 (09:46→22:21)
[2020-10-03 09:51] LABS: PLATELET 47 x1000/uL (130-400)
[2020-10-03 11:36] LABS: PLATELET ESTIMATE DECREASED
[2020-10-03 12:35] LABS: BG BASE EXCESS -7.6 mmol/L (-2.0-2.0); BG CARBOXYHEMOGLOBIN 1.5 % (0.5-1.5); BG DEOXYHEMOGLOBIN 38.5 % (0.0-5.0); BG FRACTION INSPIRED OXYGEN 1000; BG HCO3 ACT 22.2 mmol/L (22.0-26.0); BG METHEMOGLOBIN 0.3 % (0.0-1.5); BG OXYGEN SATURATION 60.8 % (92.0-98.5); BG OXYHEMOGLOBIN 59.7 % (94.0-97.0); BG PCO2 66.2 mmHg (35.0-45.0); BG PH 7.144 (7.350-7.450); BG PO2 41.4 mmHg (75.0-100.0); BG SAMPLE SITE LEFT RADIAL; BG TOTAL HEMOGLOBIN 12.7 g/dL (12.0-18.0); BG VENT MODE VENT- PRVC
[2020-10-03 13:38] LABS: BG BASE EXCESS -2.1 mmol/L (-2.0-2.0); BG FRACTION INSPIRED OXYGEN 100; BG HCO3 ACT 23.6 mmol/L (22.0-26.0); BG METHEMOGLOBIN 0.2 % (0.0-1.5); BG OXYGEN SATURATION 81.8 % (92.0-98.5); BG OXYHEMOGLOBIN 80.8 % (94.0-97.0); BG PCO2 44.2 mmHg (35.0-45.0); BG PH 7.346 (7.350-7.450); BG PO2 50.1 mmHg (75.0-100.0); BG SAMPLE SITE LEFT RADIAL; BG TOTAL HEMOGLOBIN 11.6 g/dL (12.0-18.0); BG VENT MODE VENT- PRVC
[2020-10-04] VITALS (79 sets, daily range): BP systolic 66–177; BP diastolic 28–115
[2020-10-04] MEDS: BLOOD SUGAR DIAGNOSTIC STRIP TEST SCH ×4 (00:54→17:27)
[2020-10-04] MEDS: IPRATROPIUM/ALBUTEROL 0.5-3(2.5)MG/3ML NEB HHN SCH ×4 (01:09→20:01)
[2020-10-04] MEDS: METHYLPREDNISOLONE SOD SUCC 40 MG/ML VIAL IV SCH ×3 (05:58→21:27)
[2020-10-04] MEDS: INSULIN LISPRO 100 UNITS/ML SUBCUT SCH ×4 (05:58→17:28)
[2020-10-04] MEDS: PHENYLEPHRINE 100 MG in DEXT 5% WATER 240 ML IV PRN (06:21)
[2020-10-04] MEDS: MIDAZOLAM HCL 100 MG in SODIUM CHLORIDE 0.9% 80 ML IV PRN ×3 (06:30→21:31)
[2020-10-04] MEDS: FENTANYL CITRATE/PF 2,500 MCG in SODIUM CHLORIDE 0.9% 200 ML IV PRN ×3 (06:30→21:49)
[2020-10-04] MEDS: ASCORBIC ACID 500 MG TABLET PO SCH ×2 (08:54→21:27)
[2020-10-04] MEDS: FAMOTIDINE 20MG TABLET PO SCH (08:54)
[2020-10-04] MEDS: DOCUSATE SODIUM SUGAR FREE 100MG/10ML UDC NG SCH (08:54)
[2020-10-04] MEDS: INSULIN GLARGINE UD 100 UNITS/ML SYR SUBCUT SCH ×2 (09:24→21:28)
[2020-10-04 09:29] LABS: BG BASE EXCESS 1.5 mmol/L (-2.0-2.0); BG FRACTION INSPIRED OXYGEN 100; BG HCO3 ACT 27.4 mmol/L (22.0-26.0); BG PCO2 47.9 mmHg (35.0-45.0); BG PH 7.375 (7.350-7.450); BG PO2 88.6 mmHg (75.0-100.0); BG SAMPLE SITE RIGHT RADIAL; BG VENT MODE VENT- PRVC
[2020-10-04 13:01] LABS: HEMATOCRIT. 30.7 % (36.0-48.0); HEMOGLOBIN. 10.2 g/dL (12.0-16.0); MEAN CORPUSCULAR HEMOGLOBIN 28.2 pg (28.0-32.0); MEAN PLATELET VOLUME 11.7 fl (7.4-10.4); RED BLOOD CELL COUNT 3.61 mill/uL (4.2-5.4)
[2020-10-04 13:13] LABS: CHLORIDE 114 mEq/L (98-107)
[2020-10-04 14:29] LABS: PLATELET ESTIMATE MARKEDLY DECREASED
[2020-10-04 14:31] LABS: PLATELET 37 x1000/uL (130-400)
[2020-10-04] MEDS ORDERED: MIDODRINE HCL 5MG TABLET PO NR (16:09)
[2020-10-05] VITALS (90 sets, daily range): BP systolic 44–174; BP diastolic 13–96
[2020-10-05] MEDS: BLOOD SUGAR DIAGNOSTIC STRIP TEST SCH ×5 (00:23→23:31)
[2020-10-05] MEDS: IPRATROPIUM/ALBUTEROL 0.5-3(2.5)MG/3ML NEB HHN SCH ×4 (02:02→20:42)
[2020-10-05] MEDS: MIDAZOLAM HCL 100 MG in SODIUM CHLORIDE 0.9% 80 ML IV PRN ×3 (04:10→18:29)
[2020-10-05] MEDS: FENTANYL CITRATE/PF 2,500 MCG in SODIUM CHLORIDE 0.9% 200 ML IV PRN ×3 (04:11→20:11)
[2020-10-05 05:13] LABS: HEMATOCRIT. 32.4 % (36.0-48.0); HEMOGLOBIN. 10.6 g/dL (12.0-16.0); MEAN CORPUSCULAR HEMOGLOBIN 27.5 pg (28.0-32.0); MEAN PLATELET VOLUME 11.8 fl (7.4-10.4); PLATELET 67 x1000/uL (130-400); RED BLOOD CELL COUNT 3.86 mill/uL (4.2-5.4); RED CELL DISTRIBUTION WIDTH 18.3 % (11.6-14.6)
[2020-10-05 05:16] LABS: CHLORIDE 113 mEq/L (98-107)
[2020-10-05] MEDS: METHYLPREDNISOLONE SOD SUCC 40 MG/ML VIAL IV SCH ×2 (05:43→13:45)
[2020-10-05] MEDS: INSULIN LISPRO 100 UNITS/ML SUBCUT SCH ×5 (05:44→23:30)
[2020-10-05 08:36] LABS: BG BASE EXCESS -2.2 mmol/L (-2.0-2.0); BG CARBOXYHEMOGLOBIN 1.4 % (0.5-1.5); BG DEOXYHEMOGLOBIN 6.3 % (0.0-5.0); BG FRACTION INSPIRED OXYGEN 100; BG HCO3 ACT 24.7 mmol/L (22.0-26.0); BG METHEMOGLOBIN 0.2 % (0.0-1.5); BG OXYGEN SATURATION 93.6 % (92.0-98.5); BG OXYHEMOGLOBIN 92.1 % (94.0-97.0); BG PCO2 51.4 mmHg (35.0-45.0); BG PH 7.299 (7.350-7.450); BG PO2 76.2 mmHg (75.0-100.0); BG SAMPLE SITE LEFT RADIAL; BG TOTAL HEMOGLOBIN 11.7 g/dL (12.0-18.0); BG VENT MODE PRVC
[2020-10-05] MEDS ORDERED: FUROSEMIDE 40MG/4ML VIAL IVP NR (08:45)
[2020-10-05] MEDS: ASCORBIC ACID 500 MG TABLET PO SCH ×2 (09:30→20:52)
[2020-10-05] MEDS: FAMOTIDINE 20MG TABLET PO SCH (09:30)
[2020-10-05] MEDS: DOCUSATE SODIUM SUGAR FREE 100MG/10ML UDC NG SCH (09:31)
[2020-10-05] MEDS: INSULIN GLARGINE UD 100 UNITS/ML SYR SUBCUT SCH ×2 (09:31→21:37)
[2020-10-05] MEDS: PHENYLEPHRINE 100 MG in DEXT 5% WATER 240 ML IV PRN (10:54)
[2020-10-05 11:52] LABS: PLATELET ESTIMATE DECREASED
[2020-10-05 13:32] LABS: BG BASE EXCESS -2.3 mmol/L (-2.0-2.0); BG CARBOXYHEMOGLOBIN 1.1 % (0.5-1.5); BG DEOXYHEMOGLOBIN 10.1 % (0.0-5.0); BG FRACTION INSPIRED OXYGEN 100; BG OXYGEN SATURATION 89.8 % (92.0-98.5); BG OXYHEMOGLOBIN 88.8 % (94.0-97.0); BG PCO2 47.7 mmHg (35.0-45.0); BG PH 7.319 (7.350-7.450); BG PO2 60.3 mmHg (75.0-100.0); BG SAMPLE SITE RIGHT RADIAL; BG TOTAL HEMOGLOBIN 11.4 g/dL (12.0-18.0); BG VENT MODE PRVC
[2020-10-05] MEDS: ERGOCALCIFEROL 8000UNITS/ML 60ML GT SCH (16:07)
[2020-10-05] MEDS: MIDODRINE HCL 5MG TABLET PO SCH (17:55)
[2020-10-05] MEDS ORDERED: VASOPRESSIN 20 UNIT in SODIUM CHLORIDE 0.9% 99 ML IV PRN (20:30)
[2020-10-06] VITALS (99 sets, daily range): BP systolic 85–168; BP diastolic 48–96
[2020-10-06] MEDS: IPRATROPIUM/ALBUTEROL 0.5-3(2.5)MG/3ML NEB HHN SCH ×4 (01:20→19:47)
[2020-10-06] MEDS: METHYLPREDNISOLONE SOD SUCC 40 MG/ML VIAL IV SCH ×2 (01:47→13:22)
[2020-10-06] MEDS: PHENYLEPHRINE 100 MG in DEXT 5% WATER 240 ML IV PRN (03:44)
[2020-10-06] MEDS: FENTANYL CITRATE/PF 2,500 MCG in SODIUM CHLORIDE 0.9% 200 ML IV PRN ×3 (03:52→19:12)
[2020-10-06 04:27] LABS: CHLORIDE 114 mEq/L (98-107)
[2020-10-06 04:30] LABS: HEMOGLOBIN. 10.2 g/dL (12.0-16.0); MEAN CORPUSCULAR HEMOGLOBIN 27.5 pg (28.0-32.0); MEAN CORPUSCULAR VOLUME 88.8 fL (81.0-99.0); MEAN PLATELET VOLUME 11.2 fl (7.4-10.4); PLATELET 53 x1000/uL (130-400); RED BLOOD CELL COUNT 3.72 mill/uL (4.2-5.4); RED CELL DISTRIBUTION WIDTH 19.8 % (11.6-14.6)
[2020-10-06 04:38] LABS: D-DIMER 22.67 mg/L FEU (<0.50); INR 1.4; PROTHROMBIN TIME 14.3 sec (9.6-11.0)
[2020-10-06 05:27] LABS: C REACTIVE PROTEIN CARDIAC > 480.00 mg/L (0.00-3.00)
[2020-10-06] MEDS: MIDAZOLAM HCL 100 MG in SODIUM CHLORIDE 0.9% 80 ML IV PRN ×2 (05:39→14:41)
[2020-10-06] MEDS: BLOOD SUGAR DIAGNOSTIC STRIP TEST SCH ×4 (06:24→23:47)
[2020-10-06] MEDS: INSULIN LISPRO 100 UNITS/ML SUBCUT SCH ×4 (06:24→23:46)
[2020-10-06] MEDS: ASCORBIC ACID 500 MG TABLET PO SCH ×2 (09:52→21:05)
[2020-10-06] MEDS: DOCUSATE SODIUM SUGAR FREE 100MG/10ML UDC NG SCH (09:52)
[2020-10-06] MEDS: FAMOTIDINE 20MG TABLET PO SCH (09:52)
[2020-10-06] MEDS: MIDODRINE HCL 5MG TABLET PO SCH ×3 (09:53→16:57)
[2020-10-06] MEDS: INSULIN GLARGINE UD 100 UNITS/ML SYR SUBCUT SCH ×2 (09:54→22:04)
[2020-10-06 10:12] LABS: BG BASE EXCESS -1.5 mmol/L (-2.0-2.0); BG CARBOXYHEMOGLOBIN 0.6 % (0.5-1.5); BG DEOXYHEMOGLOBIN 3.3 % (0.0-5.0); BG FRACTION INSPIRED OXYGEN 100; BG HCO3 ACT 24.3 mmol/L (22.0-26.0); BG METHEMOGLOBIN 0.3 % (0.0-1.5); BG OXYGEN SATURATION 96.7 % (92.0-98.5); BG OXYHEMOGLOBIN 95.8 % (94.0-97.0); BG PCO2 45.5 mmHg (35.0-45.0); BG PH 7.346 (7.350-7.450); BG PO2 95.5 mmHg (75.0-100.0); BG SAMPLE SITE LEFT RADIAL; BG TOTAL HEMOGLOBIN 12.8 g/dL (12.0-18.0); BG VENT MODE PRVC
[2020-10-06 12:47] LABS: PLATELET ESTIMATE DECREASED
[2020-10-06] MEDS: PROPOFOL 10MG/ML 100ML 100 ML IV PRN ×2 (13:21→23:13)
[2020-10-06] MEDS: CEFEPIME 2,000 MG in DEXT 5% WATER 100 ML IV SCH ×2 (13:22→21:05)
[2020-10-06] MEDS ORDERED: FUROSEMIDE 40MG/4ML VIAL IVP NR (16:00)
[2020-10-07] VITALS (102 sets, daily range): BP systolic 80–176; BP diastolic 42–90
[2020-10-07] MEDS: MIDAZOLAM HCL 100 MG in SODIUM CHLORIDE 0.9% 80 ML IV PRN ×3 (01:25→22:24)
[2020-10-07] MEDS: IPRATROPIUM/ALBUTEROL 0.5-3(2.5)MG/3ML NEB HHN SCH ×4 (01:52→20:36)
[2020-10-07] MEDS: METHYLPREDNISOLONE SOD SUCC 40 MG/ML VIAL IV SCH ×2 (02:33→13:09)
[2020-10-07] MEDS: FENTANYL CITRATE/PF 2,500 MCG in SODIUM CHLORIDE 0.9% 200 ML IV PRN ×3 (02:41→18:03)
[2020-10-07 04:12] LABS: BASOPHILS % 0.1 % (0.0-2.0); EOSINOPHILS % 0.4 % (0.0-5.0); HEMOGLOBIN. 9.9 g/dL (12.0-16.0); MEAN CORPUSCULAR HEMOGLOBIN 27.4 pg (28.0-32.0); MEAN CORPUSCULAR VOLUME 85.5 fL (81.0-99.0); MEAN PLATELET VOLUME 12.1 fl (7.4-10.4); MONOCYTES % 1.6 % (2.0-8.0); NEUTROPHILS % 93.9 % (40.0-76.0); RED BLOOD CELL COUNT 3.63 mill/uL (4.2-5.4); RED CELL DISTRIBUTION WIDTH 18.7 % (11.6-14.6)
[2020-10-07 04:19] LABS: CHLORIDE 114 mEq/L (98-107)
[2020-10-07 04:55] LABS: PLATELET 34 x1000/uL (130-400)
[2020-10-07] MEDS: CEFEPIME 2,000 MG in DEXT 5% WATER 100 ML IV SCH ×3 (05:27→21:32)
[2020-10-07] MEDS: INSULIN LISPRO 100 UNITS/ML SUBCUT SCH ×4 (05:49→23:41)
[2020-10-07] MEDS: BLOOD SUGAR DIAGNOSTIC STRIP TEST SCH ×4 (05:49→23:40)
[2020-10-07] MEDS ORDERED: DEXT 5% IV SCH (07:30)
[2020-10-07] MEDS ORDERED: WATER IV SCH (07:30)
[2020-10-07] MEDS ORDERED: VANCOMYCIN HCL IV SCH (07:30)
[2020-10-07] MEDS: PHENYLEPHRINE 100 MG in DEXT 5% WATER 240 ML IV PRN (07:38)
[2020-10-07] MEDS: MIDODRINE HCL 5MG TABLET PO SCH ×3 (08:14→17:42)
[2020-10-07] MEDS: DOCUSATE SODIUM SUGAR FREE 100MG/10ML UDC NG SCH (08:14)
[2020-10-07] MEDS: ASCORBIC ACID 500 MG TABLET PO SCH ×2 (08:14→21:32)
[2020-10-07] MEDS: FAMOTIDINE 20MG TABLET PO SCH (08:14)
[2020-10-07 09:22] LABS: BG BASE EXCESS -6.9 mmol/L (-2.0-2.0); BG CARBOXYHEMOGLOBIN 1.3 % (0.5-1.5); BG DEOXYHEMOGLOBIN 17.8 % (0.0-5.0); BG FRACTION INSPIRED OXYGEN 100; BG HCO3 ACT 20.4 mmol/L (22.0-26.0); BG METHEMOGLOBIN 0.3 % (0.0-1.5); BG OXYGEN SATURATION 81.9 % (92.0-98.5); BG OXYHEMOGLOBIN 80.6 % (94.0-97.0); BG PCO2 49.2 mmHg (35.0-45.0); BG PH 7.236 (7.350-7.450); BG PO2 53.1 mmHg (75.0-100.0); BG SAMPLE SITE RIGHT RADIAL; BG TOTAL HEMOGLOBIN 10.7 g/dL (12.0-18.0); BG VENT MODE VENT- PRVC
[2020-10-07] MEDS: INSULIN GLARGINE UD 100 UNITS/ML SYR SUBCUT SCH ×2 (10:12→21:33)
[2020-10-07] MEDS ORDERED: SODIUM BICARBONATE 8.4% 1 MEQ/ML 50ML SYR IV NR (11:00)
[2020-10-07 13:39] LABS: BG BASE EXCESS -6.5 mmol/L (-2.0-2.0); BG CARBOXYHEMOGLOBIN 1.4 % (0.5-1.5); BG DEOXYHEMOGLOBIN 12.6 % (0.0-5.0); BG FRACTION INSPIRED OXYGEN 100; BG HCO3 ACT 20.8 mmol/L (22.0-26.0); BG METHEMOGLOBIN 0.4 % (0.0-1.5); BG OXYGEN SATURATION 87.2 % (92.0-98.5); BG OXYHEMOGLOBIN 85.6 % (94.0-97.0); BG PCO2 49.1 mmHg (35.0-45.0); BG PH 7.244 (7.350-7.450); BG PO2 60.7 mmHg (75.0-100.0); BG SAMPLE SITE LEFT RADIAL; BG VENT MODE VENT - PRVC
[2020-10-07] MEDS: PROPOFOL 10MG/ML 100ML 100 ML IV PRN (14:48)
[2020-10-08] VITALS (110 sets, daily range): BP systolic 76–219; BP diastolic 40–99
[2020-10-08] MEDS: IPRATROPIUM/ALBUTEROL 0.5-3(2.5)MG/3ML NEB HHN SCH ×4 (01:10→20:34)
[2020-10-08] MEDS: METHYLPREDNISOLONE SOD SUCC 40 MG/ML VIAL IV SCH ×2 (01:50→14:00)
[2020-10-08] MEDS: VANCOMYCIN 1 G PREMIX 200 ML IV SCH ×2 (01:50→20:00)
[2020-10-08] MEDS: FENTANYL CITRATE/PF 2,500 MCG in SODIUM CHLORIDE 0.9% 200 ML IV PRN ×4 (02:05→23:25)
[2020-10-08] MEDS: CEFEPIME 2,000 MG in DEXT 5% WATER 100 ML IV SCH ×2 (04:58→13:45)
[2020-10-08] MEDS: PROPOFOL 10MG/ML 100ML 100 ML IV PRN (05:02)
[2020-10-08 05:26] LABS: BG BASE EXCESS -9.7 mmol/L (-2.0-2.0); BG CARBOXYHEMOGLOBIN 0.8 % (0.5-1.5); BG DEOXYHEMOGLOBIN 14.2 % (0.0-5.0); BG FRACTION INSPIRED OXYGEN 100; BG HCO3 ACT 17.1 mmol/L (22.0-26.0); BG OXYGEN SATURATION 85.7 % (92.0-98.5); BG PCO2 40.8 mmHg (35.0-45.0); BG PO2 58.2 mmHg (75.0-100.0); BG SAMPLE SITE LEFT RADIAL; BG TOTAL HEMOGLOBIN 10.2 g/dL (12.0-18.0); BG TOTAL RESPIRATORY RATE 30 b/min
[2020-10-08 05:28] LABS: BG VENT MODE VENT - PRVC
[2020-10-08] MEDS: INSULIN LISPRO 100 UNITS/ML SUBCUT SCH ×4 (05:30→23:13)
[2020-10-08] MEDS: BLOOD SUGAR DIAGNOSTIC STRIP TEST SCH ×4 (05:30→23:13)
[2020-10-08 05:43] LABS: CHLORIDE 111 mEq/L (98-107)
[2020-10-08] MEDS ORDERED: SODIUM BICARBONATE 8.4% 1 MEQ/ML 50ML SYR IV NR ×2 (06:15→16:00)
[2020-10-08] MEDS: FAMOTIDINE 20MG TABLET PO SCH (08:12)
[2020-10-08] MEDS: ASCORBIC ACID 500 MG TABLET PO SCH ×2 (08:12→20:00)
[2020-10-08] MEDS: DOCUSATE SODIUM SUGAR FREE 100MG/10ML UDC NG SCH (08:12)
[2020-10-08] MEDS: MIDODRINE HCL 5MG TABLET PO SCH ×3 (08:13→17:12)
[2020-10-08] MEDS: MIDAZOLAM HCL 100 MG in SODIUM CHLORIDE 0.9% 80 ML IV PRN ×2 (08:19→16:42)
[2020-10-08 08:20] LABS: HEMATOCRIT. 28.3 % (36.0-48.0); HEMOGLOBIN. 9.5 g/dL (12.0-16.0); MEAN CORPUSCULAR HEMOGLOBIN 28.2 pg (28.0-32.0); MEAN CORPUSCULAR VOLUME 84.6 fL (81.0-99.0); MEAN PLATELET VOLUME 11.1 fl (7.4-10.4); RED BLOOD CELL COUNT 3.35 mill/uL (4.2-5.4)
[2020-10-08 08:38] LABS: PLATELET 17 x1000/uL (130-400)
[2020-10-08] MEDS: INSULIN GLARGINE UD 100 UNITS/ML SYR SUBCUT SCH ×2 (10:21→23:12)
[2020-10-08] MEDS: DOPAMINE 400MG/250ML PREMIX 250 ML IV PRN (11:49)
[2020-10-08] MEDS ORDERED: LORAZEPAM 2MG/ML CPJ IV PRN (12:45)
[2020-10-08 13:41] LABS: NUCLEATED RED BLOOD CELLS 4 /100 WBC; PLATELET ESTIMATE MARKEDLY DECREASED
[2020-10-08] MEDS ORDERED: ACETAMINOPHEN 650MG/20.3ML UDC PO PRN (21:30)
[2020-10-08] MEDS ORDERED: CEFTRIAXONE 2 G PREMIX 50 ML IV SCH (22:00)
[2020-10-08] MEDS ORDERED: CEFTRIAXONE 2 G in DEXTROSE 5% WATER 50 ML IV SCH (22:30)
[2020-10-09] VITALS (95 sets, daily range): BP systolic 95–154; BP diastolic 44–91
[2020-10-09] MEDS: MIDAZOLAM HCL 100 MG in SODIUM CHLORIDE 0.9% 80 ML IV PRN ×4 (00:18→22:25)
[2020-10-09] MEDS: IPRATROPIUM/ALBUTEROL 0.5-3(2.5)MG/3ML NEB HHN SCH ×4 (01:37→20:27)
[2020-10-09] MEDS: METHYLPREDNISOLONE SOD SUCC 40 MG/ML VIAL IV SCH ×2 (03:12→13:11)
[2020-10-09 05:31] LABS: HEMATOCRIT. 29.7 % (36.0-48.0); HEMOGLOBIN. 9.8 g/dL (12.0-16.0); MEAN CORPUSCULAR HEMOGLOBIN 27.7 pg (28.0-32.0); MEAN CORPUSCULAR VOLUME 83.4 fL (81.0-99.0); MEAN PLATELET VOLUME 10.1 fl (7.4-10.4); PLATELET 52 x1000/uL (130-400); RED BLOOD CELL COUNT 3.56 mill/uL (4.2-5.4); RED CELL DISTRIBUTION WIDTH 18.3 % (11.6-14.6)
[2020-10-09] MEDS: BLOOD SUGAR DIAGNOSTIC STRIP TEST SCH ×3 (05:47→17:57)
[2020-10-09] MEDS: INSULIN LISPRO 100 UNITS/ML SUBCUT SCH ×3 (05:53→17:56)
[2020-10-09] MEDS: FENTANYL CITRATE/PF 2,500 MCG in SODIUM CHLORIDE 0.9% 200 ML IV PRN ×3 (06:55→21:46)
[2020-10-09] MEDS: DOCUSATE SODIUM SUGAR FREE 100MG/10ML UDC NG SCH (08:26)
[2020-10-09] MEDS: MIDODRINE HCL 5MG TABLET PO SCH ×3 (08:26→16:27)
[2020-10-09] MEDS: ASCORBIC ACID 500 MG TABLET PO SCH ×2 (08:26→20:04)
[2020-10-09 08:30] LABS: BG BASE EXCESS -8.5 mmol/L (-2.0-2.0); BG CARBOXYHEMOGLOBIN 0.8 % (0.5-1.5); BG DEOXYHEMOGLOBIN 18.2 % (0.0-5.0); BG FRACTION INSPIRED OXYGEN 100; BG HCO3 ACT 18.8 mmol/L (22.0-26.0); BG METHEMOGLOBIN 0.4 % (0.0-1.5); BG OXYGEN SATURATION 81.6 % (92.0-98.5); BG OXYHEMOGLOBIN 80.6 % (94.0-97.0); BG PCO2 46.5 mmHg (35.0-45.0); BG PH 7.225 (7.350-7.450); BG PO2 54.2 mmHg (75.0-100.0); BG SAMPLE SITE RIGHT RADIAL; BG TOTAL HEMOGLOBIN 10.4 g/dL (12.0-18.0); BG VENT MODE VENT- PRVC
[2020-10-09] MEDS ORDERED: SODIUM BICARBONATE 8.4% 1 MEQ/ML 50ML SYR IV SCH ×2 (09:15→15:00)
[2020-10-09] MEDS: INSULIN GLARGINE UD 100 UNITS/ML SYR SUBCUT SCH ×2 (09:30→22:26)
[2020-10-09 10:24] LABS: NUCLEATED RED BLOOD CELLS 1 /100 WBC; PLATELET ESTIMATE MARKEDLY DECREASED
[2020-10-09] MEDS ORDERED: SODIUM POLYSTYRENE SULFONATE 15 G/60 ML BOT PO SCH (12:00)
[2020-10-09 15:19] LABS: BG BASE EXCESS -2.1 mmol/L (-2.0-2.0); BG CARBOXYHEMOGLOBIN 0.8 % (0.5-1.5); BG DEOXYHEMOGLOBIN 7.1 % (0.0-5.0); BG FRACTION INSPIRED OXYGEN 100; BG HCO3 ACT 23.7 mmol/L (22.0-26.0); BG METHEMOGLOBIN 0.2 % (0.0-1.5); BG OXYGEN SATURATION 92.8 % (92.0-98.5); BG OXYHEMOGLOBIN 91.9 % (94.0-97.0); BG PCO2 45.2 mmHg (35.0-45.0); BG PH 7.338 (7.350-7.450); BG PO2 73.2 mmHg (75.0-100.0); BG SAMPLE SITE RIGHT RADIAL; BG TOTAL HEMOGLOBIN 9.8 g/dL (12.0-18.0); BG VENT MODE VENT - PRVC
[2020-10-09] MEDS: SODIUM BICARBONATE 8.4% 1 MEQ/ML 50ML SYR IV SCH ×2 (16:27→22:23)
[2020-10-09] MEDS: MORPHINE SULFATE 2 MG/ML CPJ (NOT FOR IM USE) IV PRN (16:44)
[2020-10-09 16:55] LABS: BG BASE EXCESS -1.8 mmol/L (-2.0-2.0); BG CARBOXYHEMOGLOBIN 1.1 % (0.5-1.5); BG DEOXYHEMOGLOBIN 20.9 % (0.0-5.0); BG FRACTION INSPIRED OXYGEN 100; BG HCO3 ACT 25.3 mmol/L (22.0-26.0); BG METHEMOGLOBIN 0.5 % (0.0-1.5); BG OXYGEN SATURATION 78.8 % (92.0-98.5); BG OXYHEMOGLOBIN 77.5 % (94.0-97.0); BG PCO2 53.7 mmHg (35.0-45.0); BG PH 7.291 (7.350-7.450); BG PO2 48.2 mmHg (75.0-100.0); BG SAMPLE SITE RIGHT RADIAL; BG TOTAL HEMOGLOBIN 11.4 g/dL (12.0-18.0); BG VENT MODE VENT - PRVC
[2020-10-09 18:44] LABS: CLARITY URINE CLEAR (CLEAR); COLOR URINE DARK YELLOW (YELLOW); KETONES URINE TRACE (NEGATIVE); LEUKOCYTE ESTERASE URINE TRACE (NEGATIVE); NITRITE URINE NEGATIVE (NEGATIVE); OCCULT BLOOD URINE TRACE (NEGATIVE); PROTEIN URINE TRACE (NEGATIVE); SPECIFIC GRAVITY URINE 1.019 (1.005-1.030)
[2020-10-09] MEDS ORDERED: VANCOMYCIN 750 MG PREMIX 150 ML IV SCH (20:00)
[2020-10-09] MEDS: LACTULOSE 20G/30ML UDC PO PRN (20:24)
[2020-10-10] VITALS (94 sets, daily range): BP systolic 96–172; BP diastolic 49–107
[2020-10-10] MEDS: BLOOD SUGAR DIAGNOSTIC STRIP TEST SCH ×4 (00:24→17:11)
[2020-10-10] MEDS: INSULIN LISPRO 100 UNITS/ML SUBCUT SCH ×4 (00:52→17:25)
[2020-10-10] MEDS: IPRATROPIUM/ALBUTEROL 0.5-3(2.5)MG/3ML NEB HHN SCH ×4 (01:45→20:19)
[2020-10-10] MEDS: METHYLPREDNISOLONE SOD SUCC 40 MG/ML VIAL IV SCH ×2 (02:18→14:09)
[2020-10-10] MEDS: MORPHINE SULFATE 2 MG/ML CPJ (NOT FOR IM USE) IV PRN (05:56)
[2020-10-10] MEDS: FENTANYL CITRATE/PF 2,500 MCG in SODIUM CHLORIDE 0.9% 200 ML IV PRN ×3 (05:57→20:50)
[2020-10-10] MEDS: SODIUM BICARBONATE 8.4% 1 MEQ/ML 50ML SYR IV SCH ×2 (05:59→14:09)
[2020-10-10] MEDS: PHENYLEPHRINE 100 MG in DEXT 5% WATER 240 ML IV PRN (06:25)
[2020-10-10] MEDS: MIDAZOLAM HCL 100 MG in SODIUM CHLORIDE 0.9% 80 ML IV PRN ×2 (07:53→16:05)
[2020-10-10 08:04] LABS: BG BASE EXCESS -1.9 mmol/L (-2.0-2.0); BG CARBOXYHEMOGLOBIN 0.5 % (0.5-1.5); BG DEOXYHEMOGLOBIN 10.3 % (0.0-5.0); BG FRACTION INSPIRED OXYGEN 100; BG HCO3 ACT 24.4 mmol/L (22.0-26.0); BG METHEMOGLOBIN 0.3 % (0.0-1.5); BG OXYGEN SATURATION 89.6 % (92.0-98.5); BG OXYHEMOGLOBIN 88.9 % (94.0-97.0); BG PCO2 48.6 mmHg (35.0-45.0); BG PH 7.318 (7.350-7.450); BG PO2 63.6 mmHg (75.0-100.0); BG SAMPLE SITE RIGHT RADIAL; BG TOTAL HEMOGLOBIN 9.6 g/dL (12.0-18.0); BG TOTAL RESPIRATORY RATE 30 b/min; BG VENT MODE VENT- PRVC
[2020-10-10 08:30] LABS: HEMATOCRIT. 28.2 % (36.0-48.0); HEMOGLOBIN. 9.4 g/dL (12.0-16.0); MEAN CORPUSCULAR HEMOGLOBIN 27.4 pg (28.0-32.0); MEAN CORPUSCULAR VOLUME 82.3 fL (81.0-99.0); MEAN PLATELET VOLUME 11.7 fl (7.4-10.4); RED BLOOD CELL COUNT 3.43 mill/uL (4.2-5.4); RED CELL DISTRIBUTION WIDTH 19.4 % (11.6-14.6)
[2020-10-10 08:46] LABS: PLATELET 38 x1000/uL (130-400)
[2020-10-10] MEDS: DOCUSATE SODIUM SUGAR FREE 100MG/10ML UDC NG SCH (09:00)
[2020-10-10] MEDS: MIDODRINE HCL 5MG TABLET PO SCH ×3 (09:37→17:07)
[2020-10-10] MEDS: ASCORBIC ACID 500 MG TABLET PO SCH ×2 (09:37→20:08)
[2020-10-10] MEDS: INSULIN GLARGINE UD 100 UNITS/ML SYR SUBCUT SCH ×2 (09:38→21:37)
[2020-10-10 11:56] LABS: NUCLEATED RED BLOOD CELLS 5 /100 WBC; PLATELET ESTIMATE MARKEDLY DECREASED
[2020-10-10] MEDS: FUROSEMIDE 40MG/4ML VIAL IVP SCH (14:09)
[2020-10-10] MEDS: AMPICILLIN SOD/SULBACTAM NA 3 G in SODIUM CHLORIDE 0.9% 100 ML IV SCH ×2 (15:32→21:29)
[2020-10-11] VITALS (95 sets, daily range): BP systolic 51–206; BP diastolic 34–116
[2020-10-11] MEDS: BLOOD SUGAR DIAGNOSTIC STRIP TEST SCH ×4 (00:39→17:05)
[2020-10-11] MEDS: INSULIN LISPRO 100 UNITS/ML SUBCUT SCH ×4 (00:56→17:05)
[2020-10-11] MEDS: METHYLPREDNISOLONE SOD SUCC 40 MG/ML VIAL IV SCH ×2 (01:00→13:41)
[2020-10-11] MEDS: MIDAZOLAM HCL 100 MG in SODIUM CHLORIDE 0.9% 80 ML IV PRN ×4 (01:03→17:18)
[2020-10-11] MEDS: IPRATROPIUM/ALBUTEROL 0.5-3(2.5)MG/3ML NEB HHN SCH ×4 (01:54→20:18)
[2020-10-11] MEDS: AMPICILLIN SOD/SULBACTAM NA 3 G in SODIUM CHLORIDE 0.9% 100 ML IV SCH ×4 (04:26→21:31)
[2020-10-11] MEDS: FENTANYL CITRATE/PF 2,500 MCG in SODIUM CHLORIDE 0.9% 200 ML IV PRN ×3 (04:27→19:55)
[2020-10-11 04:59] LABS: HEMOGLOBIN. 9.7 g/dL (12.0-16.0); MEAN CORPUSCULAR HEMOGLOBIN 27.4 pg (28.0-32.0); MEAN CORPUSCULAR VOLUME 81.8 fL (81.0-99.0); MEAN PLATELET VOLUME 10.3 fl (7.4-10.4); RED BLOOD CELL COUNT 3.55 mill/uL (4.2-5.4); RED CELL DISTRIBUTION WIDTH 19.2 % (11.6-14.6)
[2020-10-11] MEDS: MIDODRINE HCL 5MG TABLET PO SCH ×3 (08:20→17:18)
[2020-10-11] MEDS: FUROSEMIDE 40MG/4ML VIAL IVP SCH (08:20)
[2020-10-11] MEDS: DOCUSATE SODIUM SUGAR FREE 100MG/10ML UDC NG SCH (08:28)
[2020-10-11 09:01] LABS: BG BASE EXCESS -0.4 mmol/L (-2.0-2.0); BG CARBOXYHEMOGLOBIN 0.6 % (0.5-1.5); BG DEOXYHEMOGLOBIN 13.5 % (0.0-5.0); BG FRACTION INSPIRED OXYGEN 100; BG HCO3 ACT 25.4 mmol/L (22.0-26.0); BG METHEMOGLOBIN 0.3 % (0.0-1.5); BG OXYGEN SATURATION 86.4 % (92.0-98.5); BG OXYHEMOGLOBIN 85.6 % (94.0-97.0); BG PCO2 46.8 mmHg (35.0-45.0); BG PH 7.352 (7.350-7.450); BG PO2 54.9 mmHg (75.0-100.0); BG SAMPLE SITE RIGHT RADIAL; BG TOTAL HEMOGLOBIN 10.4 g/dL (12.0-18.0); BG VENT MODE VENT- PRVC
[2020-10-11] MEDS: ASCORBIC ACID 500 MG TABLET PO SCH ×2 (10:09→20:41)
[2020-10-11] MEDS: INSULIN GLARGINE UD 100 UNITS/ML SYR SUBCUT SCH ×2 (10:10→22:52)
[2020-10-11 13:34] LABS: NUCLEATED RED BLOOD CELLS 3 /100 WBC
[2020-10-11 13:35] LABS: PLATELET 32 x1000/uL (130-400); PLATELET ESTIMATE MARKEDLY DECREASED
[2020-10-11] MEDS: MORPHINE SULFATE 2 MG/ML CPJ (NOT FOR IM USE) IV PRN (15:37)
[2020-10-12] VITALS (99 sets, daily range): BP systolic 88–172; BP diastolic 45–101
[2020-10-12] MEDS: BLOOD SUGAR DIAGNOSTIC STRIP TEST SCH ×4 (00:18→17:30)
[2020-10-12] MEDS: FENTANYL CITRATE/PF 2,500 MCG in SODIUM CHLORIDE 0.9% 200 ML IV PRN ×3 (01:45→18:21)
[2020-10-12] MEDS: MIDAZOLAM HCL 100 MG in SODIUM CHLORIDE 0.9% 80 ML IV PRN ×3 (01:45→16:42)
[2020-10-12] MEDS: IPRATROPIUM/ALBUTEROL 0.5-3(2.5)MG/3ML NEB HHN SCH ×4 (02:09→20:36)
[2020-10-12] MEDS: METHYLPREDNISOLONE SOD SUCC 40 MG/ML VIAL IV SCH ×2 (03:13→13:29)
[2020-10-12] MEDS: AMPICILLIN SOD/SULBACTAM NA 3 G in SODIUM CHLORIDE 0.9% 100 ML IV SCH ×4 (06:16→20:49)
[2020-10-12] MEDS: INSULIN LISPRO 100 UNITS/ML SUBCUT SCH ×4 (06:18→17:32)
[2020-10-12 06:36] LABS: HEMOGLOBIN. 9.2 g/dL (12.0-16.0); MEAN CORPUSCULAR HEMOGLOBIN 27.6 pg (28.0-32.0); MEAN CORPUSCULAR VOLUME 83.4 fL (81.0-99.0); RED BLOOD CELL COUNT 3.35 mill/uL (4.2-5.4); RED CELL DISTRIBUTION WIDTH 18.7 % (11.6-14.6)
[2020-10-12 08:16] LABS: BG CARBOXYHEMOGLOBIN 0.3 % (0.5-1.5); BG DEOXYHEMOGLOBIN 8.3 % (0.0-5.0); BG HCO3 ACT 24.1 mmol/L (22.0-26.0); BG METHEMOGLOBIN 1.1 % (0.0-1.5); BG OXYGEN SATURATION 91.6 % (92.0-98.5); BG OXYHEMOGLOBIN 90.3 % (94.0-97.0); BG PCO2 41.5 mmHg (35.0-45.0); BG PH 7.381 (7.350-7.450); BG PO2 69.8 mmHg (75.0-100.0); BG SAMPLE SITE RIGHT RADIAL; BG TOTAL HEMOGLOBIN 9.1 g/dL (12.0-18.0); BG VENT MODE VENT- PRVC
[2020-10-12] MEDS: DOCUSATE SODIUM SUGAR FREE 100MG/10ML UDC NG SCH (08:46)
[2020-10-12] MEDS: FUROSEMIDE 40MG/4ML VIAL IVP SCH (08:46)
[2020-10-12] MEDS: ASCORBIC ACID 500 MG TABLET PO SCH ×2 (08:46→20:49)
[2020-10-12] MEDS: MIDODRINE HCL 5MG TABLET PO SCH ×3 (08:47→16:07)
[2020-10-12] MEDS: INSULIN GLARGINE UD 100 UNITS/ML SYR SUBCUT SCH ×2 (09:11→22:56)
[2020-10-12 09:33] LABS: PLATELET 53 x1000/uL (130-400)
[2020-10-12 09:39] LABS: NUCLEATED RED BLOOD CELLS 5 /100 WBC; PLATELET ESTIMATE MARKEDLY DECREASED
[2020-10-12] MEDS: PHENYLEPHRINE 100 MG in DEXT 5% WATER 240 ML IV PRN (12:27)
[2020-10-12] MEDS: ERGOCALCIFEROL 8000UNITS/ML 60ML GT SCH (14:55)
[2020-10-13] VITALS (111 sets, daily range): BP systolic 84–209; BP diastolic 41–145
[2020-10-13] MEDS: MIDAZOLAM HCL 100 MG in SODIUM CHLORIDE 0.9% 80 ML IV PRN ×2 (00:13→08:54)
[2020-10-13] MEDS: BLOOD SUGAR DIAGNOSTIC STRIP TEST SCH ×4 (00:22→17:10)
[2020-10-13] MEDS: IPRATROPIUM/ALBUTEROL 0.5-3(2.5)MG/3ML NEB HHN SCH ×4 (01:19→20:38)
[2020-10-13] MEDS: METHYLPREDNISOLONE SOD SUCC 40 MG/ML VIAL IV SCH ×2 (02:34→14:24)
[2020-10-13] MEDS: FENTANYL CITRATE/PF 2,500 MCG in SODIUM CHLORIDE 0.9% 200 ML IV PRN ×3 (02:35→18:34)
[2020-10-13] MEDS: AMPICILLIN SOD/SULBACTAM NA 3 G in SODIUM CHLORIDE 0.9% 100 ML IV SCH ×4 (04:36→21:40)
[2020-10-13 05:43] LABS: CHLORIDE 115 mEq/L (98-107); HEMATOCRIT. 25.6 % (36.0-48.0); HEMOGLOBIN. 8.6 g/dL (12.0-16.0); MEAN CORPUSCULAR HEMOGLOBIN 27.8 pg (28.0-32.0); MEAN CORPUSCULAR VOLUME 82.6 fL (81.0-99.0); MEAN PLATELET VOLUME 12.8 fl (7.4-10.4); RED BLOOD CELL COUNT 3.09 mill/uL (4.2-5.4); RED CELL DISTRIBUTION WIDTH 18.6 % (11.6-14.6)
[2020-10-13 06:09] LABS: PLATELET 39 x1000/uL (130-400)
[2020-10-13] MEDS: INSULIN LISPRO 100 UNITS/ML SUBCUT SCH ×4 (06:38→17:10)
[2020-10-13 07:40] LABS: BG CARBOXYHEMOGLOBIN 0.4 % (0.5-1.5); BG DEOXYHEMOGLOBIN 6.2 % (0.0-5.0); BG METHEMOGLOBIN 0.1 % (0.0-1.5); BG OXYGEN SATURATION 93.8 % (92.0-98.5); BG OXYHEMOGLOBIN 93.3 % (94.0-97.0); BG PCO2 42.1 mmHg (35.0-45.0); BG PH 7.391 (7.350-7.450); BG PO2 75.5 mmHg (75.0-100.0); BG SAMPLE SITE RIGHT RADIAL; BG TOTAL HEMOGLOBIN 9.8 g/dL (12.0-18.0); BG VENT MODE VENT- PRVC
[2020-10-13] MEDS: MORPHINE SULFATE 2 MG/ML CPJ (NOT FOR IM USE) IV PRN ×2 (08:10→14:14)
[2020-10-13 08:37] LABS: NUCLEATED RED BLOOD CELLS 1 /100 WBC
[2020-10-13 08:38] LABS: PLATELET ESTIMATE MARKEDLY DECREASED
[2020-10-13] MEDS: DOCUSATE SODIUM SUGAR FREE 100MG/10ML UDC NG SCH (08:48)
[2020-10-13] MEDS: MIDODRINE HCL 5MG TABLET PO SCH ×3 (08:48→16:04)
[2020-10-13] MEDS: INSULIN GLARGINE UD 100 UNITS/ML SYR SUBCUT SCH ×2 (11:23→21:41)
[2020-10-13] MEDS ORDERED: DOPAMINE 800MG PREMIX (DOUBLE) 250 ML IV PRN (11:45)
[2020-10-13] MEDS ORDERED: SODIUM CHLORIDE 0.9% 200 ML IV SCH (12:00)
[2020-10-13] MEDS ORDERED: MIDAZOLAM 100MG/100ML PMX 100 ML IV PRN (13:15)
[2020-10-13] MEDS: MIDAZOLAM HCL 100 MG in SODIUM CHLORIDE 0.9% 100 ML IV PRN (16:07)
[2020-10-14] VITALS (72 sets, daily range): BP systolic 95–200; BP diastolic 42–128
[2020-10-14] MEDS: MIDAZOLAM HCL 100 MG in SODIUM CHLORIDE 0.9% 100 ML IV PRN ×4 (00:08→21:34)
[2020-10-14] MEDS: BLOOD SUGAR DIAGNOSTIC STRIP TEST SCH ×4 (00:09→18:55)
[2020-10-14] MEDS: INSULIN LISPRO 100 UNITS/ML SUBCUT SCH ×4 (00:14→18:55)
[2020-10-14] MEDS: IPRATROPIUM/ALBUTEROL 0.5-3(2.5)MG/3ML NEB HHN SCH ×4 (00:41→20:53)
[2020-10-14] MEDS: FENTANYL CITRATE/PF 2,500 MCG in SODIUM CHLORIDE 0.9% 200 ML IV PRN ×3 (02:02→17:50)
[2020-10-14] MEDS: METHYLPREDNISOLONE SOD SUCC 40 MG/ML VIAL IV SCH ×2 (02:14→13:07)
[2020-10-14] MEDS: AMPICILLIN SOD/SULBACTAM NA 3 G in SODIUM CHLORIDE 0.9% 100 ML IV SCH ×4 (03:35→21:33)
[2020-10-14 05:28] LABS: HEMOGLOBIN. 9.8 g/dL (12.0-16.0); MEAN CORPUSCULAR HEMOGLOBIN 27.2 pg (28.0-32.0); MEAN CORPUSCULAR VOLUME 83.5 fL (81.0-99.0); RED CELL DISTRIBUTION WIDTH 18.7 % (11.6-14.6)
[2020-10-14 05:36] LABS: CHLORIDE 115 mEq/L (98-107)
[2020-10-14 07:40] LABS: BG BASE EXCESS 0.3 mmol/L (-2.0-2.0); BG CARBOXYHEMOGLOBIN 0.5 % (0.5-1.5); BG DEOXYHEMOGLOBIN 4.3 % (0.0-5.0); BG HCO3 ACT 25.5 mmol/L (22.0-26.0); BG METHEMOGLOBIN 0.4 % (0.0-1.5); BG OXYGEN SATURATION 95.7 % (92.0-98.5); BG OXYHEMOGLOBIN 94.8 % (94.0-97.0); BG PCO2 43.7 mmHg (35.0-45.0); BG PH 7.384 (7.350-7.450); BG PO2 90.9 mmHg (75.0-100.0); BG SAMPLE SITE RIGHT RADIAL; BG TOTAL HEMOGLOBIN 8.3 g/dL (12.0-18.0); BG VENT MODE VENT- PRVC
[2020-10-14 09:25] LABS: PLATELET 71 x1000/uL (130-400)
[2020-10-14 09:28] LABS: NUCLEATED RED BLOOD CELLS 4 /100 WBC
[2020-10-14] MEDS: INSULIN GLARGINE UD 100 UNITS/ML SYR SUBCUT SCH ×2 (09:41→22:28)
[2020-10-14] MEDS: DOCUSATE SODIUM SUGAR FREE 100MG/10ML UDC NG SCH (09:41)
[2020-10-14] MEDS: MIDODRINE HCL 5MG TABLET PO SCH ×3 (09:42→16:33)
[2020-10-14] MEDS: MORPHINE SULFATE 2 MG/ML CPJ (NOT FOR IM USE) IV PRN (13:52)
[2020-10-15] VITALS (86 sets, daily range): BP systolic 102–163; BP diastolic 42–81
[2020-10-15] MEDS: BLOOD SUGAR DIAGNOSTIC STRIP TEST SCH ×4 (00:35→18:27)
[2020-10-15] MEDS: FENTANYL CITRATE/PF 2,500 MCG in SODIUM CHLORIDE 0.9% 200 ML IV PRN ×3 (00:35→16:12)
[2020-10-15] MEDS: METHYLPREDNISOLONE SOD SUCC 40 MG/ML VIAL IV SCH ×2 (01:13→13:21)
[2020-10-15] MEDS: INSULIN LISPRO 100 UNITS/ML SUBCUT SCH ×4 (01:14→18:26)
[2020-10-15] MEDS: IPRATROPIUM/ALBUTEROL 0.5-3(2.5)MG/3ML NEB HHN SCH ×2 (02:42→08:07)
[2020-10-15] MEDS: AMPICILLIN SOD/SULBACTAM NA 3 G in SODIUM CHLORIDE 0.9% 100 ML IV SCH ×4 (04:06→21:30)
[2020-10-15] MEDS: MIDAZOLAM HCL 100 MG in SODIUM CHLORIDE 0.9% 100 ML IV PRN ×3 (04:06→17:18)
[2020-10-15 05:54] LABS: CHLORIDE 117 mEq/L (98-107)
[2020-10-15 05:57] LABS: HEMATOCRIT. 24.4 % (36.0-48.0); HEMOGLOBIN. 8.1 g/dL (12.0-16.0); MEAN CORPUSCULAR HEMOGLOBIN 27.7 pg (28.0-32.0); MEAN CORPUSCULAR VOLUME 83.7 fL (81.0-99.0); MEAN PLATELET VOLUME 12.2 fl (7.4-10.4); RED BLOOD CELL COUNT 2.91 mill/uL (4.2-5.4); RED CELL DISTRIBUTION WIDTH 19.2 % (11.6-14.6)
[2020-10-15 08:49] LABS: BG BASE EXCESS 1.9 mmol/L (-2.0-2.0); BG CARBOXYHEMOGLOBIN 0.8 % (0.5-1.5); BG DEOXYHEMOGLOBIN 4.4 % (0.0-5.0); BG FRACTION INSPIRED OXYGEN 100; BG HCO3 ACT 26.9 mmol/L (22.0-26.0); BG METHEMOGLOBIN 0.3 % (0.0-1.5); BG OXYGEN SATURATION 95.6 % (92.0-98.5); BG OXYHEMOGLOBIN 94.5 % (94.0-97.0); BG PH 7.404 (7.350-7.450); BG PO2 86.1 mmHg (75.0-100.0); BG SAMPLE SITE RIGHT RADIAL; BG TOTAL HEMOGLOBIN 8.7 g/dL (12.0-18.0); BG VENT MODE VENT- PRVC
[2020-10-15] MEDS ORDERED: POTASSIUM CHLORIDE 20MEQ TABLET SR PO SCH (09:00)
[2020-10-15] MEDS ORDERED: FUROSEMIDE 40MG/4ML VIAL IVP SCH (09:00)
[2020-10-15] MEDS: DOCUSATE SODIUM SUGAR FREE 100MG/10ML UDC NG SCH (09:25)
[2020-10-15] MEDS: MIDODRINE HCL 5MG TABLET PO SCH ×3 (09:28→17:51)
[2020-10-15] MEDS: INSULIN GLARGINE UD 100 UNITS/ML SYR SUBCUT SCH ×2 (09:29→22:25)
[2020-10-15 12:13] LABS: NUCLEATED RED BLOOD CELLS 1 /100 WBC; PLATELET ESTIMATE MARKEDLY DECREASED
[2020-10-15 12:15] LABS: PLATELET 50 x1000/uL (130-400)
[2020-10-16] VITALS (81 sets, daily range): BP systolic 59–210; BP diastolic 20–122
[2020-10-16] MEDS: BLOOD SUGAR DIAGNOSTIC STRIP TEST SCH ×2 (00:10→06:20)
[2020-10-16] MEDS: FENTANYL CITRATE/PF 2,500 MCG in SODIUM CHLORIDE 0.9% 200 ML IV PRN ×4 (00:42→21:00)
[2020-10-16] MEDS: MIDAZOLAM HCL 100 MG in SODIUM CHLORIDE 0.9% 100 ML IV PRN ×4 (00:43→23:32)
[2020-10-16] MEDS: METHYLPREDNISOLONE SOD SUCC 40 MG/ML VIAL IV SCH ×2 (03:06→13:24)
[2020-10-16] MEDS: AMPICILLIN SOD/SULBACTAM NA 3 G in SODIUM CHLORIDE 0.9% 100 ML IV SCH ×4 (05:18→21:16)
[2020-10-16 05:50] LABS: HEMATOCRIT. 28.2 % (36.0-48.0); HEMOGLOBIN. 9.2 g/dL (12.0-16.0); MEAN CORPUSCULAR HEMOGLOBIN 27.5 pg (28.0-32.0); MEAN CORPUSCULAR VOLUME 83.9 fL (81.0-99.0); MEAN PLATELET VOLUME 12.9 fl (7.4-10.4); PLATELET 63 x1000/uL (130-400); RED BLOOD CELL COUNT 3.37 mill/uL (4.2-5.4); RED CELL DISTRIBUTION WIDTH 19.1 % (11.6-14.6)
[2020-10-16 05:57] LABS: CHLORIDE 118 mEq/L (98-107)
[2020-10-16] MEDS: INSULIN LISPRO 100 UNITS/ML SUBCUT SCH ×2 (06:00)
[2020-10-16 08:23] LABS: PLATELET ESTIMATE DECREASED
[2020-10-16] MEDS: MIDODRINE HCL 5MG TABLET PO SCH ×3 (08:50→18:12)
[2020-10-16] MEDS: FUROSEMIDE 40MG/4ML VIAL IVP SCH ×2 (08:52→18:11)
[2020-10-16] MEDS: DOCUSATE SODIUM SUGAR FREE 100MG/10ML UDC NG SCH (08:52)
[2020-10-16] MEDS: INSULIN GLARGINE UD 100 UNITS/ML SYR SUBCUT SCH ×2 (09:02→21:16)
[2020-10-16 09:22] LABS: BG BASE EXCESS 2.5 mmol/L (-2.0-2.0); BG CARBOXYHEMOGLOBIN 0.8 % (0.5-1.5); BG DEOXYHEMOGLOBIN 4.4 % (0.0-5.0); BG FRACTION INSPIRED OXYGEN 100; BG HCO3 ACT 28.1 mmol/L (22.0-26.0); BG METHEMOGLOBIN 0.4 % (0.0-1.5); BG OXYGEN SATURATION 95.5 % (92.0-98.5); BG OXYHEMOGLOBIN 94.4 % (94.0-97.0); BG PCO2 48.3 mmHg (35.0-45.0); BG PH 7.382 (7.350-7.450); BG PO2 87.1 mmHg (75.0-100.0); BG SAMPLE SITE RIGHT RADIAL; BG TOTAL HEMOGLOBIN 9.5 g/dL (12.0-18.0); BG VENT MODE VENT- PRVC
[2020-10-16] MEDS: PHENYLEPHRINE 100 MG in DEXT 5% WATER 240 ML IV PRN (20:56)
[2020-10-16] MEDS: IPRATROPIUM/ALBUTEROL 0.5-3(2.5)MG/3ML NEB HHN SCH (23:53)
[2020-10-17] VITALS (94 sets, daily range): BP systolic 99–186; BP diastolic 46–95
[2020-10-17] MEDS: METHYLPREDNISOLONE SOD SUCC 40 MG/ML VIAL IV SCH ×2 (02:05→13:07)
[2020-10-17] MEDS: AMPICILLIN SOD/SULBACTAM NA 3 G in SODIUM CHLORIDE 0.9% 100 ML IV SCH ×4 (04:19→21:07)
[2020-10-17] MEDS: FENTANYL CITRATE/PF 2,500 MCG in SODIUM CHLORIDE 0.9% 200 ML IV PRN ×2 (04:57→12:53)
[2020-10-17 05:37] LABS: HEMATOCRIT. 27.7 % (36.0-48.0); HEMOGLOBIN. 9.2 g/dL (12.0-16.0); MEAN CORPUSCULAR HEMOGLOBIN 28.3 pg (28.0-32.0); MEAN CORPUSCULAR VOLUME 84.8 fL (81.0-99.0); MEAN PLATELET VOLUME 12.3 fl (7.4-10.4); PLATELET 90 x1000/uL (130-400); RED BLOOD CELL COUNT 3.27 mill/uL (4.2-5.4); RED CELL DISTRIBUTION WIDTH 20.2 % (11.6-14.6)
[2020-10-17 05:48] LABS: CHLORIDE 118 mEq/L (98-107)
[2020-10-17] MEDS: MIDAZOLAM HCL 100 MG in SODIUM CHLORIDE 0.9% 100 ML IV PRN ×2 (06:26→14:51)
[2020-10-17] MEDS: FUROSEMIDE 40MG/4ML VIAL IVP SCH ×3 (06:28→17:02)
[2020-10-17 08:52] LABS: BG BASE EXCESS 2.6 mmol/L (-2.0-2.0); BG CARBOXYHEMOGLOBIN 0.8 % (0.5-1.5); BG METHEMOGLOBIN 0.4 % (0.0-1.5); BG OXYHEMOGLOBIN 94.8 % (94.0-97.0); BG PH 7.393 (7.350-7.450); BG PO2 89.1 mmHg (75.0-100.0); BG SAMPLE SITE LEFT RADIAL; BG TOTAL HEMOGLOBIN 9.9 g/dL (12.0-18.0)
[2020-10-17] MEDS: IPRATROPIUM/ALBUTEROL 0.5-3(2.5)MG/3ML NEB HHN SCH ×3 (08:56→21:05)
[2020-10-17 08:57] LABS: BG VENT MODE VENT- PRVC; BG VENT RATE 20 set
[2020-10-17 08:58] LABS: BG FRACTION INSPIRED OXYGEN 100
[2020-10-17 08:59] LABS: BG PEEP (cmH2O) 16 cmH2O
[2020-10-17] MEDS: MIDODRINE HCL 5MG TABLET PO SCH ×3 (09:00→17:02)
[2020-10-17 09:03] LABS: HEMATOCRIT 28.3 % (36.0-48.0); HEMOGLOBIN 9.3 g/dL (12.0-16.0)
[2020-10-17] MEDS: DOCUSATE SODIUM SUGAR FREE 100MG/10ML UDC NG SCH (09:03)
[2020-10-17] MEDS: INSULIN GLARGINE UD 100 UNITS/ML SYR SUBCUT SCH ×2 (09:12→21:07)
[2020-10-17 10:22] LABS: NUCLEATED RED BLOOD CELLS 2 /100 WBC; PLATELET ESTIMATE DECREASED
[2020-10-18] VITALS (96 sets, daily range): BP systolic 89–225; BP diastolic 24–185
[2020-10-18] MEDS: IPRATROPIUM/ALBUTEROL 0.5-3(2.5)MG/3ML NEB HHN SCH ×3 (01:15→13:56)
[2020-10-18] MEDS: METHYLPREDNISOLONE SOD SUCC 40 MG/ML VIAL IV SCH ×2 (01:33→13:06)
[2020-10-18] MEDS: MIDAZOLAM HCL 100 MG in SODIUM CHLORIDE 0.9% 100 ML IV PRN ×2 (01:44→09:39)
[2020-10-18 05:36] LABS: HEMATOCRIT. 28.1 % (36.0-48.0); HEMOGLOBIN. 9.3 g/dL (12.0-16.0); MEAN CORPUSCULAR HEMOGLOBIN 27.9 pg (28.0-32.0); MEAN CORPUSCULAR VOLUME 83.9 fL (81.0-99.0); RED BLOOD CELL COUNT 3.35 mill/uL (4.2-5.4); RED CELL DISTRIBUTION WIDTH 20.7 % (11.6-14.6)
[2020-10-18 05:38] LABS: CHLORIDE 118 mEq/L (98-107)
[2020-10-18 08:29] LABS: BG BASE EXCESS 0.5 mmol/L (-2.0-2.0); BG CARBOXYHEMOGLOBIN 1.8 % (0.5-1.5); BG DEOXYHEMOGLOBIN 29.2 % (0.0-5.0); BG FRACTION INSPIRED OXYGEN 100; BG METHEMOGLOBIN 0.2 % (0.0-1.5); BG OXYGEN SATURATION 70.2 % (92.0-98.5); BG OXYHEMOGLOBIN 68.8 % (94.0-97.0); BG PCO2 59.1 mmHg (35.0-45.0); BG PH 7.294 (7.350-7.450); BG SAMPLE SITE RIGHT RADIAL; BG TOTAL HEMOGLOBIN 11.8 g/dL (12.0-18.0); BG TOTAL RESPIRATORY RATE 30 b/min; BG VENT MODE VENT- PRVC
[2020-10-18] MEDS: DOCUSATE SODIUM SUGAR FREE 100MG/10ML UDC NG SCH (09:00)
[2020-10-18] MEDS: FUROSEMIDE 40MG/4ML VIAL IVP SCH ×3 (09:34→17:39)
[2020-10-18] MEDS: MIDODRINE HCL 5MG TABLET PO SCH ×3 (09:35→17:39)
[2020-10-18] MEDS: INSULIN GLARGINE UD 100 UNITS/ML SYR SUBCUT SCH ×2 (09:36→22:00)
[2020-10-18] MEDS: FENTANYL CITRATE/PF 2,500 MCG in SODIUM CHLORIDE 0.9% 200 ML IV PRN (09:38)
[2020-10-18 10:55] LABS: PLATELET ESTIMATE DECREASED
[2020-10-18 10:56] LABS: PLATELET 65 x1000/uL (130-400)
[2020-10-18] MEDS ORDERED: MIDAZOLAM HCL 100 MG in SODIUM CHLORIDE 0.9% 80 ML IV PRN (23:00)
[2020-10-18] MEDS ORDERED: MORPHINE SULFATE 250 MG in DEXT 5% WATER 240 ML IV PRN (23:00)
== END 2020-10-19 00:46 | DRG 870 ==
LOC: ER 14:58 → EDBEDREQ 19:31 → 7WST 19:31 → EDBEDREQTM 19:31 → EDBEDREQSVC 19:31 → EDBEDREQ 19:32 → ENRESERV 20:21 → MICUSO 09-13 07:56 → MICUNO 10-06 23:00
PROVIDERS: ADMIT Internal Medicine; ATTEND Internal Medicine
PROC: 5A09357 Assistance with Respiratory Ventilation, Less than 24 Consecutive Hours, Continuous Positive Airway Pressure (ICD-10-PCS; 2020-09-11)
PROC: 5A09357 Assistance with Respiratory Ventilation, Less than 24 Consecutive Hours, Continuous Positive Airway Pressure (ICD-10-PCS; principal; 2020-09-12)
PROC: 5A0935A Assistance with Respiratory Ventilation, Less than 24 Consecutive Hours, High Flow/Velocity Cannula (ICD-10-PCS; 2020-09-12)
PROC: 5A1955Z Respiratory Ventilation, Greater than 96 Consecutive Hours (ICD-10-PCS; 2020-09-13)
PROC: 0BH17EZ Insertion of Endotracheal Airway into Trachea, Via Natural or Artificial Opening (ICD-10-PCS; 2020-09-13)
PROC: 02HV33Z Insertion of Infusion Device into Superior Vena Cava, Percutaneous Approach (ICD-10-PCS; 2020-09-13)
PROC: B548ZZA Ultrasonography of Superior Vena Cava, Guidance (ICD-10-PCS; 2020-09-13)
PROC: 5A09357 Assistance with Respiratory Ventilation, Less than 24 Consecutive Hours, Continuous Positive Airway Pressure (ICD-10-PCS; 2020-09-13)
PROC: 02PYX3Z Removal of Infusion Device from Great Vessel, External Approach (ICD-10-PCS; 2020-09-23)
PROC: 02HV33Z Insertion of Infusion Device into Superior Vena Cava, Percutaneous Approach (ICD-10-PCS; 2020-09-23)
PROC: 30233R1 Transfusion of Nonautologous Platelets into Peripheral Vein, Percutaneous Approach (ICD-10-PCS; 2020-10-08)
DX: A41.89 Other specified sepsis (principal); U07.1 COVID-19; E43 Unspecified severe protein-calorie malnutrition; J12.82 Pneumonia due to coronavirus disease 2019; R65.21 Severe sepsis with septic shock; G93.41 Metabolic encephalopathy; I63.9 Cerebral infarction, unspecified; N17.0 Acute kidney failure with tubular necrosis; J96.01 Acute respiratory failure with hypoxia; J44.0 Chronic obstructive pulmonary disease with (acute) lower respiratory infection; E87.1 Hypo-osmolality and hyponatremia; T82.524A Displacement of infusion catheter, initial encounter; R18.8 Other ascites; D68.59 Other primary thrombophilia; E87.2 Acidosis; N39.0 Urinary tract infection, site not specified; E87.0 Hyperosmolality and hypernatremia; F41.9 Anxiety disorder, unspecified; E78.5 Hyperlipidemia, unspecified; E11.65 Type 2 diabetes mellitus with hyperglycemia; B97.89 Other viral agents as the cause of diseases classified elsewhere; K74.60 Unspecified cirrhosis of liver; E78.00 Pure hypercholesterolemia, unspecified; K21.9 Gastro-esophageal reflux disease without esophagitis; I10 Essential (primary) hypertension; Y84.8 Other medical procedures as the cause of abnormal reaction of the patient, or of later complication, without mention of misadventure at the time of the procedure; Y92.230 Patient room in hospital as the place of occurrence of the external cause; D69.6 Thrombocytopenia, unspecified; R00.1 Bradycardia, unspecified; Z66 Do not resuscitate; Z51.5 Encounter for palliative care; B95.2 Enterococcus as the cause of diseases classified elsewhere; R94.31 Abnormal electrocardiogram [ECG] [EKG]; D64.9 Anemia, unspecified; E87.6 Hypokalemia; E87.5 Hyperkalemia; Z86.73 Personal history of transient ischemic attack (TIA), and cerebral infarction without residual deficits; Z87.440 Personal history of urinary (tract) infections; Z88.5 Allergy status to narcotic agent; Z79.84 Long term (current) use of oral hypoglycemic drugs; Z79.899 Other long term (current) drug therapy; Z68.38 Body mass index [BMI] 38.0-38.9, adult
CPT/HCPCS: 36415; 36600; 71045; 71275; 74018; 76937; 80048; 80053; 80061; 80076; 80202; 81003; 82375; 82728; 82805; 82962; 83036; 83615; 83735; 83880; 84132; 84145; 84300; 84478; 84484; 85014; 85018; 85025; 85379; 86140; 86141; 86850; 86900; 87070; 87077; 87186; 87426; 93005; 93306; 93970; 94003; 94640; 94660; 99291; A6261; C1725; C1893; J0295; J0360; J0456; J0461; J0692; J0696; J1100; J1265; J1650; J1815; J1940; J2250; J2270; J2370; J2405; J2543; J2704; J2920; J3010; J3370; J3490; J7030; J7040; J7050; J7060; P9034; Q9967; U0003